=== PATIENT | female | born 1950 | race Caucasian/White ===

== ENCOUNTER 2022-04-06 06:32 | Day surgery (SDC) | payer OTHER, SELFPAY ==
[2022-03-30 15:02] VITALS: BMI 20.9
--- NOTE | 2022-04-05 09:56 | HO.ANESPROP2 ---
Documented by User: Amanda Jimenez NP 04/05/22 09:57 HPI - Anesthesia Eval Consult details Narrative: 71yo F for Colonoscopy PMFSH Active Problems Active Problems: All Active Problems (Updated 03/30/22 @ 15:04 by Marva Guevara RN) Annual physical exam (Acute) Tubular adenoma of colon (Acute) History of basal cell carcinoma (BCC) excision (Acute) Osteoporosis (Acute) MGUS (monoclonal gammopathy of unknown significance) (Acute) Hypertension (Acute) Past Medical History Medical History COVID-19 vaccine series completed Hypertension MGUS (monoclonal gammopathy of unknown significance) Osteoporosis Tubular adenoma of colon Family History Family History (Updated 10/18/20 @ 13:07 by IFEANYI Ching) Father CHF (congestive heart failure) Mother Lung cancer Surgical History Surgical History H/O colonoscopy History of basal cell carcinoma (BCC) excision History of tonsillectomy and adenoidectomy Social History Social History (Updated 11/03/21 @ 09:32 by Jude Nunez MD) Housing: House Alcohol intake: current Alcohol intake frequency: holidays/special occasions only Patient Tobacco Use Status: Never used Tobacco e-Cigarette/Vaping Use: Never Used Second Hand Smoke Exposure: No Use of substances other than those prescribed or required for medical reasons: No Advance Directives: No Advance Directives Information Provided: Yes Advance Directives on File: No Current occupational status: retired Meds Allergies Allergy/AdvReac Type Severity Reaction Status Date / Time MEGAN Inhibitors Allergy Intermediate ELEVATED BP Verified 04/06/22 06:38 [MEGAN INHIBITORS] Home Medications Medication Instructions Recorded Confirmed Last Taken Type alendronate 70 mg tablet 70 mg PO QWEEK 10/21/20 03/30/22 Unknown History ascorbic acid (vitamin C) 500 mg 500 mg PO DAILY 10/21/20 03/30/22 Unknown History capsule cholecalciferol (vitamin D3) 10 10 mcg PO DAILY 10/21/20 03/30/22 Unknown History mcg (400 unit) capsule herbal complex no.174 450 mg mg PO 10/21/20 11/03/21 Unknown History capsule multivitamin 1 tab PO DAILY 10/21/20 03/30/22 Unknown History Exam Exam Date and Time: April 05, 2022 0956 Height,Weight and Vital Signs: Height 5 ft 4 in Weight 55.338 kg Assessment and Plan Assessment Anesthesia Assessment: Chart Reviewed Documented by User: Farzana Lopez MD 04/06/22 07:39 [facility] Past Medical History Medical History COVID-19 vaccine series completed Hypertension MGUS (monoclonal gammopathy of unknown significance) Osteoporosis Tubular adenoma of colon Family History Family History (Updated 10/18/20 @ 13:07 by Ching Ballard [facility]) Father CHF (congestive heart failure) Mother Lung cancer Family history of problems with anesthesia: No Surgical History Surgical History H/O colonoscopy History of basal cell carcinoma (BCC) excision History of tonsillectomy and adenoidectomy History of Problems with Anesthesia: No Social History Social History (Updated 11/03/21 @ 09:32 by Jude Nunez MD) Housing: House Alcohol intake: current Alcohol intake frequency: holidays/special occasions only Patient Tobacco Use Status: Never used Tobacco e-Cigarette/Vaping Use: Never Used Second Hand Smoke Exposure: No Use of substances other than those prescribed or required for medical reasons: No Advance Directives: No Advance Directives Information Provided: Yes Advance Directives on File: No Current occupational status: retired Meds Allergies Allergy/AdvReac Type Severity Reaction Status Date / Time MEGAN Inhibitors Allergy Intermediate ELEVATED BP Verified 04/06/22 06:38 [MEGAN INHIBITORS] Home Medications Medication Instructions Recorded Confirmed Last Taken Type alendronate 70 mg tablet 70 mg PO QWEEK 10/21/20 03/30/22 Unknown History ascorbic acid (vitamin C) 500 mg 500 mg PO DAILY 10/21/20 03/30/22 Unknown History capsule cholecalciferol (vitamin D3) 10 10 mcg PO DAILY 10/21/20 03/30/22 Unknown History mcg (400 unit) capsule herbal complex no.174 450 mg mg PO 10/21/20 11/03/21 Unknown History capsule multivitamin 1 tab PO DAILY 10/21/20 03/30/22 Unknown History Exam Height,Weight and Vital Signs: Height 5 ft 4 in Weight 55.338 kg Vital Signs Temp Pulse Resp BP Pulse Ox 04/06/22 06:45 98.5 F 58 16 155/79 H 99 Airway Mallampati Class: II TM Dist: >3cm Neck ROM: Full Partial: Upper and Lower Heart: RRR Lungs: CTAB Assessment and Plan Assessment Anesthesia Assessment: Anesthesia Plan Discussed Final Anesthetic Review Family History of Problems with Anesthesia: No History of Problems with Anesthesia: No NPO: Yes ASA Class: II Final Preanesthetic Review: No Changes in Pt Med Stat, Meds/Allgs Chart Reviewed, Consent Obtained/Reviewed and Anes Risks/Benef Reviewed Patient Risk: Low Procedure Risk: Low Assessment/Block/Sedation in SS: Assess/Block/Sedation-SS Anesthetic Plan Anesthetic Plan: MAC: Disposition: Standard PACU
[2022-04-06 06:45] VITALS: BP 155/79; PULSE 58; RESP 16; TEMP 36.9; O2SAT 99
[2022-04-06] MEDS: Lactated Ringers 1,000 ML 100 ML IVCONT (06:59)
--- NOTE | 2022-04-06 07:27 | MHC.SHP ---
Pre-Procedural Eval Section A Date of Service: 04/06/22 The History & Physical has been completed within 30 days and I have reviewed it.: No Section B Chief Complaint: screening Details of Present Illness: see H&P no changes Relevant Family History (Specify if Yes): No Relevant Social History: None Present Medications: see Short Stay Collaborative assessment Medical History: No relevant PMH History of Previous Operations: No relevant previous surgery Allergies: Allergies Allergy/AdvReac Type Severity Reaction Status Date / Time MEGAN Inhibitors Allergy Intermediate ELEVATED BP Verified 04/06/22 06:38 [MEGAN INHIBITORS] Review of Systems Sugical H&P ROS: Negative: Constitution, Cardiovascular, Respiratory, Neurological, Psychiatric, Hem-Onc, Allergic/Immunologic, Gastrointestinal, Genitourinary, Musculoskeletal, Integumentary, Endocrine and Eyes/Ears/Nose/Throat Exam Surgical H&P Exam: Normal: HEENT, Normal: Heart, Normal: Lungs, Normal: Extremities, Normal: Abdomen, Normal: Skin and Normal: Neurological Plan Diagnosis/Plan: Unchanged I have reviewed the history and physical and performed a pertinent physical examination on my patient. No changes have occurred unless specified.
[2022-04-06 08:12] VITALS: BP 100/62; PULSE 62; RESP 10; TEMP 36.1; O2SAT 98
--- NOTE | 2022-04-06 08:20 | PM.OP ---
Brief Operative Note Date of Service: 04/06/22 Pre-op diagnosis: screening Post-op diagnosis: same Surgeon: Etienne Bourgeois Anesthesia: MAC Was an Wire Drawing Die Maker used for this Procedure?: No Estimated blood loss (mL): 2 Pathology: other Condition: stable Disposition: PACU
[2022-04-06 08:27] VITALS: BP 124/64; PULSE 57; RESP 16; TEMP 36.2; O2SAT 99
--- NOTE | 2022-04-06 20:20 | OP_ITS ---
SURGEON: Etienne Bourgeois MD INDICATIONS: Colon cancer screening and prior history of tubular adenomas. PREOPERATIVE DIAGNOSIS: POSTOPERATIVE DIAGNOSIS: PROCEDURE PERFORMED: Colonoscopy to the terminal ileum with biopsy. ESTIMATED BLOOD LOSS: COMPLICATIONS: ANESTHESIA: ASSISTANTS: SPECIMENS: MEDICATIONS: Monitored anesthesia care. DESCRIPTION OF PROCEDURE: History and physical were performed. The risks and benefits of the procedure were explained to the patient. Informed consent was obtained. The patient was placed in the left lateral decubitus position. A digital rectal exam was performed and was found to be normal. The Olympus pediatric video colonoscope was introduced into the rectum and advanced to the cecum without difficulty. The cecum was identified by transillumination, palpation, and identification of ileocecal valve. Examination was performed. The scope was removed. She tolerated the procedure well and was taken to recovery area in stable condition. FINDINGS: The limited views of the terminal ileum were within normal limits. The visualized colonic mucosa was normal. The quality of prep was good. A single polyp measuring less than 5 mm at 30 cm from the anal verge, was removed with biopsy forceps. Retroflexed examination showed small internal hemorrhoids. IMPRESSION: Colon polyp. RECOMMENDATION: Follow up the biopsy results. MD KELLEY Wills/ROSANNA / [id number]
== END 2022-04-06 08:59 | disposition home or self-care (01) ==
PROVIDERS: PCP Internal Medicine; Visit Provider Internal Medicine Gastroenterology
PROC: 0DJD8ZZ Inspection of Lower Intestinal Tract, Via Natural or Artificial Opening Endoscopic (ICD-10-PCS; CPT 45378; principal; 2022-04-06 07:30)
DX: Z12.11 Encounter for screening for malignant neoplasm of colon (principal); Z86.010 Personal history of colon polyps; D12.5 Benign neoplasm of sigmoid colon; K64.8 Other hemorrhoids; I10 Essential (primary) hypertension; D47.2 Monoclonal gammopathy; M81.0 Age-related osteoporosis without current pathological fracture; Z79.899 Other long term (current) drug therapy; Z88.8 Allergy status to other drugs, medicaments and biological substances
CPT/HCPCS: 45380; 88305

== ENCOUNTER 2023-07-11 08:49 | Outpatient (REF) | payer OTHER, SELFPAY ==
[2023-07-11 11:18] LABS: MANUAL DIFF FLAG NO
[2023-07-11 11:59] LABS: Basophils Absolute Auto 0.1 X10*3/uL (0.0-0.2); Basophils Percent Auto 1.1 % (0-2); Eosinophils Percent Auto 0.6 % (0-4); Hematocrit 43.7 % (37.0-47.0); Hemoglobin 14.7 g/dl (12.0-16.0); Imm Gran Abs Auto 0.02 X10*3/uL (0.00-0.03); Imm Gran Pct Auto 0.3 % (0.0-0.4); Lymphocytes Absolute Auto 1.9 X10*3/uL (1.2-4.9); Mean Corpuscular HGB Conc 33.6 g/dl (31.0-35.0); Mean Corpuscular Hemoglobin 30.6 pg (27.0-33.0); Mean Corpuscular Volume 90.9 fL (80.0-98.0); Mean Platelet Volume 10.7 fL (9.4-12.3); Monocytes Absolute Auto 0.9 X10*3/uL (0.1-1.2); Monocytes Percent Auto 12.3 % (2-11); Neutrophils Absolute Auto 4.1 x10*3/uL (2.0-8.3); Neutrophils Percent Auto 58.7 % (45-73); Platelet Count 279 X10*3/uL (160-400); Red Blood Count 4.81 X10*6/uL (4.20-5.50); Red Cell Distribution Width 11.9 % (11.0-16.0)
[2023-07-11 12:46] LABS: Alanine Aminotransferase 32 U/L (0-31); Albumin Level 4.3 g/dL (3.5-5.0); Alkaline Phosphatase 70 U/L (39-117); Anion Gap 12 (12-20); Aspartate Amino Transferase 22 U/L (5-31); Bilirubin Total 1.7 mg/dL (0.0-1.0); Blood Urea Nitrogen 19 mg/dL (9-16); Calcium 9.6 mg/dL (8.4-10.2); Carbon Dioxide 28 mmol/L (22-29); Chloride 105 mmol/L (96-108); Cholesterol 168 mg/dL; Estimated Glomerular Filt Rate > 60; Folate 15.7 ng/mL (> or = 4.0); Glucose Random 88 mg/dL (60-115); HDL Cholesterol 63 mg/dL; LDL Cholesterol Calculated 84 mg/dl; Potassium 3.8 mmol/L (3.3-5.1); Sodium 141 mmol/L (135-145); Total Protein 6.8 g/dL (6.5-8.0); Triglycerides 105 mg/dL; Vitamin B12 493 pg/mL (200-900)
[2023-07-11 12:48] LABS: Free T4 (Free Thyroxine) 0.85 ng/dL (0.71-1.85); Thyroid Stimulating Hormone 0.69 uIU/mL (0.32-4.0); Vitamin D 25-OH Total 94.1 ng/mL (>30)
[2023-07-12 19:38] LABS: Calcium (PTHI) 9.4 mg/dL (8.6-10.4); PTHI 36 pg/mL (16-77)
== END 2023-07-11 08:50 | disposition home or self-care (01) ==
LOC: HO.WFDLDS 08:49
PROVIDERS: Visit Provider Internal Medicine
DX: I10 Essential (primary) hypertension (principal); M81.0 Age-related osteoporosis without current pathological fracture; E78.00 Pure hypercholesterolemia, unspecified
CPT/HCPCS: 36415; 80053; 80061; 82306; 82607; 82746; 83970; 84439; 84443; 85025

== ENCOUNTER 2023-10-21 16:32 | Outpatient (AMB) | payer OTHER, SELFPAY ==
--- NOTE | 2023-10-21 16:37 | MHC.PC.OV ---
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 Last seen for physical exam April 2023. Patient is up-to-date with colonoscopy mammogram and bone density patient sees Dermatology October 2023 received Shingrix. 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 Patient has seen also the Orthopedics for left intra-articular distal radial fracture had closed reduction maneuver April 2023. spoke to Dr. Velazquez. [facility] Medical History (Updated 10/21/23 @ 17:26 by Jude Nunez MD) COVID-19 vaccine series completed Tubular adenoma of colon Osteoporosis MGUS (monoclonal gammopathy of unknown significance) Hypertension Surgical History H/O colonoscopy History of basal cell carcinoma (BCC) excision History of tonsillectomy and adenoidectomy Family History (Updated 04/15/23 @ 17:27 by Veronica Noriega) Father CHF (congestive heart failure) Mother Lung cancer Social History (Updated 04/15/23 @ 17:48 by Jude Nunez MD) Housing: House Alcohol intake: current Alcohol intake frequency: holidays/special occasions only Patient Tobacco Use Status: Never used Tobacco e-Cigarette/Vaping Use: Never Used Second Hand Smoke Exposure: No Current occupational status: retired Cognitive needs: No Hearing needs: No Vision needs: No Questionnaire Thrive Questionnaire Date Thrive assessed: 04/15/23 AUDIT C Alcohol Use Questionnaire (AUDIT-C) 1. How often do you have a drink containing alcohol?: Never 2. How many drinks containing alcohol do you have on a typical day when you are drinking?: 1 or 2 3. How often do you have six or more drinks on one occasion?: Never Total Score: 0 WANDER-7 AMB Questionnaire WANDER-7 Date WANDER - 7 assessed: 04/15/23 Source: Developed by Drs. Segundo Yuen, Abbey Marinelli, Quan Garcia and colleagues, with an educational imani from [employer]. Physical exam (Primary Care) Vital Signs: Last Vital Signs Pulse 58 10/21/23 16:38 BP 160/86 H 10/21/23 16:38 Pulse Ox 100 10/21/23 16:38 Oxygen Delivery Method Room Air 10/21/23 16:38 BMI result Body Mass Index 20.3 Tobacco/Smoking Status: Tobacco use Status Tobacco use date assessed 10/21/23 10/21/23 16:38 Patient Tobacco Use Status Never used Tobacco 10/21/23 16:38 e-Cigarette/Vaping Use Never Used 10/21/23 16:38 Thrive Assessment: Date of Thrive Assessment Date Thrive assessed 04/15/23 10/21/23 16:38 Const General: alert; No acute distress Eyes Conjunctivae: conjunctivae normal Resp Auscultation: clear to auscultation bilaterally Cardio Rate: regular rate Rhythm: regular rhythm GI Inspection: Yes normal to inspection Extrem General: Yes normal to inspection and No edema Office Procedures Flu Questionnaire Does the patient have a severe egg allergy?: No Does the patient have severe life threatening allergies?: No Does the patient have a fever or illness today?: No Has the patient ever had Guillain-[place] Syndrome?: No Has the patient ever had any past reaction to a flu shot?: No Immunizations flu vacc [id number] 6mos up(PF) 60 mcg(15 mcgx4)/0.5 mL IM syringe Performing Provider: Jude Nunez MD Performing Location: [facility] [employer] Administered by: IFEANYI Vega on 10/21/23 16:51 Dose Route Admin Location Dispensed Lot Number Expiration Date NDC Material Planning Analyst 0.5 mL IM Left Deltoid 0.5 mL [id number] 05/31/24 [id number] [employer] VIS Given Date VIS Provided VIS Publication Date 10/21/23 Single Vaccine 21 Eligibility Eligibility Date Funding Source Not VF Eligible 10/21/23 Private Assessment and Plan Assessment & Plan (1) Left wrist fracture: Comment: 04/23/2023 with closed reduction(distal radial fracture) Code(s): S62.102A - Fracture of unspecified carpal bone, left wrist, initial encounter for closed fracture Plan: Resolved (2) Osteoporosis: Code(s): M81.0 - Age-related osteoporosis without current pathological fracture Qualifiers: Osteoporosis type: age-related Presence of current pathological fracture: without current pathological fracture Qualified Code(s): M81.0 - Age-related osteoporosis without current pathological fracture Plan: Discussed about calcium and vitamin-D (3) MGUS (monoclonal gammopathy of unknown significance): Comment: Doctor Rodríguez November 2016, May 2017, June 2020 Code(s): D47.2 - Monoclonal gammopathy Plan: Patient follows up with hematology oncology and since asymptomatic continuing to monitor (4) Hypertension: Code(s): I10 - Essential (primary) hypertension Qualifiers: Hypertension type: essential hypertension Qualified Code(s): I10 - Essential (primary) hypertension Plan: Continue with blood pressure medication. Decrease salt intake and exercise patient on hydrochlorothiazide 25 mg once a day Orders: Orders Influenza [id number] Immunization Today Z23 - Encounter for immunization Medications: New amlodipine 5 mg PO DAILY 30 tabs 4RF I10 - Essential (primary) hypertension Coding Level of Care Code Est Pt Level 4 (15182) Diagnoses Left wrist fracture S62.102A Age-related osteoporosis without current pathological fracture M81.0 Osteoporosis type: age-related Presence of current pathological fracture: without current pathological fracture MGUS (monoclonal gammopathy of unknown significance) D47.2 Essential hypertension I10 Hypertension type: essential hypertension
[2023-10-21 16:38] VITALS: BP 160/86; PULSE 58; O2SAT 100; BMI 20.3
== END 2023-10-21 17:39 | disposition home or self-care (01) ==
PROVIDERS: Visit Provider Internal Medicine
DX: S62.102A Fracture of unspecified carpal bone, left wrist, initial encounter for closed fracture (principal); M81.0 Age-related osteoporosis without current pathological fracture; D47.2 Monoclonal gammopathy; I10 Essential (primary) hypertension; Z23 Encounter for immunization
CPT/HCPCS: 90471; 90686; 99214

== ENCOUNTER 2024-04-20 17:07 | Outpatient (AMB) | payer OTHER, SELFPAY ==
--- NOTE | 2024-04-20 17:14 | MHC.PC.OV ---
Vital Signs 04/20/24 17:19 Height 5 ft 4 in Weight 53.581 kg BMI 20.3 BP 168/88 H Blood Pressure Location Lt brachial Position Sitting Pulse 60 Pulse Source Pulse Oximeter Pulse Oximetry (%) 98 Oxygen Delivery Method Room Air Intake Visit Reasons: PE Call Center Specialist Required: No Accompanied by: Self / Same As Patient Allergies MEGAN Inhibitors [MEGAN INHIBITORS] Allergy (Intermediate, Verified 04/20/24 17:29) ELEVATED BP Medication List - Last Reconciled 04/20/24 by Jude Nunez MD amlodipine 5 mg PO DAILY ascorbic acid (vitamin C) 500 mg PO DAILY cholecalciferol (vitamin D3) 10 mcg PO DAILY herbal complex no.174 mg PO hydrochlorothiazide 25 mg PO DAILY multivitamin 1 tab PO DAILY Tobacco use date assessed: 04/20/24 Fall risk assessment: No Falls in past year Last assessed Fall Risk: 04/20/24 Dental Screening Dental Screen Date: 04/20/24 Did you have a dental visit in the last 12 months?: Yes Did you have a dental problem in the last 6 months where you did not have access to dental care?: No Was dental information given to patient?: Patient has dentist HPI PE HPI Details 73-year-old female with a history of osteoporosis MGUS and hypertension last seen in October 2023. Patient is here for physical exam. Colonoscopy is up-to-date April 2022 tubular adenoma mammogram April 2023 due bone density November 2022 up-to-date. BP good at home [facility], [facility] Medical History (Updated 04/20/24 @ 18:07 by Jude Nunez MD) COVID-19 vaccine series completed Tubular adenoma of colon Osteoporosis MGUS (monoclonal gammopathy of unknown significance) Hypertension Surgical History H/O colonoscopy History of basal cell carcinoma (BCC) excision History of tonsillectomy and adenoidectomy Family History Father CHF (congestive heart failure) Mother Lung cancer Social History (Updated 04/20/24 @ 18:07 by Jude Nunez MD) Housing: House Alcohol intake: current Alcohol intake frequency: holidays/special occasions only Comment: 1 day glass of wine Patient Tobacco Use Status: Never used Tobacco e-Cigarette/Vaping Use: Never Used Second Hand Smoke Exposure: No Current occupational status: retired Cognitive needs: No Hearing needs: No Vision needs: No Questionnaire PHQ-9 Over the last 2 weeks, how often have you been bothered by any of the following problems? 1. Little interest or pleasure in doing things: not at all 2. Feeling down, depressed, or hopeless: not at all 3. Trouble falling or staying asleep, or sleeping too much: not at all 4. Feeling tired or having little energy: not at all 5. Poor appetite or overeating: not at all 6. Feeling bad about yourself - or that you are a failure or have let yourself or your family down: not at all 7. Trouble concentrating on things, such as reading the newspaper or watching television: not at all 8. Moving or speaking so slowly that other people could have noticed. Or the opposite - being so fidgety or restless that you have been moving around a lot more than usual: not at all 9. Thoughts that you would be better off or of hurting yourself in some way: not at all Total score: 0 Depression Screening Interpretation: Negative Depression Screening Done: Yes Source: Developed by Drs. Segundo Yuen, Abbey Marinelli, Quan Garcia and colleagues, with an educational imani from [employer]. Thrive Questionnaire Date Thrive assessed: 04/20/24 I am a: Patient What is your living situation today?: I have a steady place to live Within the past 12 months, did the food you bought not last and you didn't have the money to get more?: Never true Within the past 12 months, did you worry whether your food would run out before you got money to buy more?: Never true Do you have trouble paying for medicines?: No Do you have trouble getting transportation to medical appointments?: No Do you have trouble paying your heating and electricity bill?: No Do you have trouble taking care of your child, family member or friend?: No Do you have trouble with day-to-day activities such as bathing, preparing meals, shopping, managing finances, etc.?: No Are you currently unemployed and looking for a job?: No Are you interested in more education?: No Please select the resources that you would like help with: None Currently or been in a relationship where the following occur: no concerns reported THRIVE Score: 0 AUDIT C Alcohol Use Questionnaire (AUDIT-C) 1. How often do you have a drink containing alcohol?: Never 2. How many drinks containing alcohol do you have on a typical day when you are drinking?: 1 or 2 3. How often do you have six or more drinks on one occasion?: Never Total Score: 0 WANDER-7 AMB Questionnaire WANDER-7 Date WANDER - 7 assessed: 04/20/24 Feeling nervous, anxious, or on edge: 0 = Not at all Not being able to stop or control worryin = Not at all Worrying too much about different things: 0 = Not at all Trouble relaxin = Not at all Being so restless that it is hard to sit still: 0 = Not at all Becoming easily annoyed or irritable: 0 = Not at all Feeling afraid as if something awful might happen: 0 = Not at all Total WANDER-7 score (0-4 normal; 5-9 mild; 10-14 moderate; 15-21 severe): 0 Source: Developed by Drs. Segundo Yuen, Abbey Marinelli, Quan Garcia and colleagues, with an educational imani from [employer]. WANDER-7 Assessment Billing WANDER-7 Assessment Tool: WANDER-7 Assessment 92277 Review of Systems Const Denies poor appetite and Denies weakness Eyes Denies no additional complaints ENT Reports Normal hearing present, Denies dizziness, Denies nasal congestion, Denies tinnitus and Denies sore throat Card Denies chest pain, Denies syncope, Denies rapid heart rate and Denies dyspnea Resp Denies cough and Denies dyspnea GI Denies change in stool character, Reports constipation, Denies diarrhea, Denies nausea and Denies vomiting Denies urinary frequency, Denies difficulty voiding and Denies dysuria Neuro Reports Normal hearing present, Denies confusion, Denies dizziness, Denies syncope and Denies weakness Psych Denies confusion Physical exam (Primary Care) Vital Signs: Last Vital Signs Pulse 60 04/20/24 17:19 BP 168/88 H 04/20/24 17:19 Pulse Ox 98 04/20/24 17:19 Oxygen Delivery Method Room Air 04/20/24 17:19 BMI result Body Mass Index 20.3 Tobacco/Smoking Status: Tobacco use Status Tobacco use date assessed 04/20/24 04/20/24 17:29 Patient Tobacco Use Status Never used Tobacco 04/20/24 18:07 e-Cigarette/Vaping Use Never Used 04/20/24 18:07 PHQ-9: PHQ-9 Score PHQ-9: Total score 0 04/20/24 18:03 Depression Screening Interpretation: Negative Thrive Assessment: Date of Thrive Assessment Date Thrive assessed 04/20/24 04/20/24 17:21 Currently or been in a relationship where the following occur: no concerns reported Const General: No confusion Orientation/consciousness: No confusion HENMT Head: Yes normocephalic Ears: external ears normal and TM's normal bilaterally Face and sinus: Yes normal facial exam Mouth: moist mucous membranes Throat: Yes tonsils normal Eyes Conjunctivae: conjunctivae normal Pupils: Equal, round and reactive pupils present and Pupil accommodation reflex normal Direct Ophthalmoscopy: normal light reflex Neck Neck: No lymphadenopathy Thyroid: Thyroid normal Chest Chest palpation & inspection: normal inspection of the chest Resp Effort & Inspection: normal respiratory effort and no audible wheezes Auscultation: clear to auscultation bilaterally, no crackles, no wheezes and lung sounds not diminished Cardio Rate: regular rate Rhythm: regular rhythm Peripheral pulses: radial pulses present and dorsalis pedis present GI Palpation (GI): no masses Auscultation: normal bowel sounds and normoactive bowel sounds Rectal Exam - Female: deferred Skin General skin exam: no rashes or lesions noted Rashes: no rashes Neuro General: No confusion Cranial nerves: Yes Equal, round and reactive pupils present and Yes Normal hearing present Cognition (Neuro): normal cognition Gait exam (Neuro): Normal gait present Motor exam (neuro): 5/5 motor strength present throughout Deep tendon reflexes (DTR's): Right brachioradialis reflex intensity grade: 2+, Left brachioradialis reflex intensity grade: 2+, Right patellar reflex intensity grade: 2+ and Left patellar reflex intensity grade: 2+ Extrem General: No edema Immunizations tetanus-diphtheria toxoids-Td 2 Lf unit-2 Lf unit/0.5 mL IM suspension Performing Provider: Jude Nunez MD Performing Location: [facility] Administered by: IFEANYI Lazar on 04/20/24 18:29 Dose Route Admin Location Dispensed Lot Number Expiration Date NDC Web Site [employer]er 0.5 mL IM Left Deltoid 0.5 mL [id number] 01/11/25 [address]-9 [employer] VIS Given Date VIS Provided VIS Publication Date 04/20/24 Single Vaccine 21 Eligibility Eligibility Date Funding Source Not VFC Eligible 04/20/24 State funds Assessment and Plan Assessment & Plan (1) Annual physical exam: Code(s): Z00.00 - Encounter for general adult medical examination without abnormal findings (2) Hypertension: Code(s): I10 - Essential (primary) hypertension Qualifiers: Hypertension type: essential hypertension Qualified Code(s): I10 - Essential (primary) hypertension Plan: Continue with blood pressure medication. Decrease salt intake and exercise presently on amlodipine 5 mg once a day and hydrochlorothiazide 25 mg once a day (3) MGUS (monoclonal gammopathy of unknown significance): Comment: Doctor Rodríguez November 2016, May 2017, June 2020 Code(s): D47.2 - Monoclonal gammopathy Plan: Patient follows up with Hematology-Oncology (4) Osteoporosis: Comment: November 2022 Code(s): M81.0 - Age-related osteoporosis without current pathological fracture Qualifiers: Osteoporosis type: age-related Presence of current pathological fracture: without current pathological fracture Qualified Code(s): M81.0 - Age-related osteoporosis without current pathological fracture Plan: Up-to-date with bone density and discussed about calcium and vitamin-D (5) Breast cancer screening by mammogram: Comment: [place] Code(s): Z12.31 - Encounter for screening mammogram for malignant neoplasm of breast Plan: Reminded about mammogram (6) 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 Mckeon Code(s): C79.2 - Secondary malignant neoplasm of skin Orders: Orders Complete Blood Count Auto Diff Today I10 - Essential (primary) hypertension Thyroid Stimulating Hormone Today I10 - Essential (primary) hypertension Comprehensive Met. Panel Today I10 - Essential (primary) hypertension Free T4 (Free Thyroxine) Today I10 - Essential (primary) hypertension Vitamin B12 and Folate Today I10 - Essential (primary) hypertension Vitamin D 25-OH Total Today I10 - Essential (primary) hypertension Lipid Panel Today E78.00 - Pure hypercholesterolemia, unspecified, I10 - Essential (primary) hypertension Td State Immunization Today Z23 - Encounter for immunization Medications: New tetanus-diphtheria toxoids-Td 0.5 mL IM ONCE 0.5 mL 0RF Z23 - Encounter for immunization Coding Level of Care Code Est Pt Prev Care >65y(38983) Diagnoses Annual physical exam Z00.00 Essential hypertension I10 Hypertension type: essential hypertension MGUS (monoclonal gammopathy of unknown significance) D47.2 Age-related osteoporosis without current pathological fracture M81.0 Osteoporosis type: age-related Presence of current pathological fracture: without current pathological fracture Breast cancer screening by mammogram Z12.31 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
[2024-04-20 17:19] VITALS: BP 168/88; PULSE 60; O2SAT 98; BMI 20.3
== END 2024-04-20 18:23 | disposition home or self-care (01) ==
PROVIDERS: Visit Provider Internal Medicine
DX: Z00.00 Encounter for general adult medical examination without abnormal findings (principal); C79.2 Secondary malignant neoplasm of skin; I10 Essential (primary) hypertension; Z23 Encounter for immunization; D47.2 Monoclonal gammopathy; M81.0 Age-related osteoporosis without current pathological fracture; Z12.31 Encounter for screening mammogram for malignant neoplasm of breast
CPT/HCPCS: 90471; 90714; 99397

== ENCOUNTER 2024-07-06 09:00 | Outpatient (AMB) | payer OTHER, SELFPAY ==
--- NOTE | 2024-07-06 09:36 | MHC.OFFWIV ---
Intake Vital Signs 07/06/24 09:38 Height 5 ft 4 in Weight 118 lb 4 oz BMI 20.3 BP 122/72 Blood Pressure Location Rt brachial Position Sitting Respiration 16 Pulse 68 Pulse Source Pulse Oximeter Temp 98.8 F Temp Source Oral Pulse Oximetry (%) 96 Oxygen Delivery Method Room Air Intake Visit Reasons: EST/ Cough past five days Intake Note: Cough past 5 days. Patient Tobacco Use Status: Never used Tobacco Clerical Coordinator Required: No Allergies MEGAN Inhibitors [MEGAN INHIBITORS] Allergy (Intermediate, Verified 07/06/24 09:46) ELEVATED BP Medication List - Last Reconciled 07/06/24 by Esmer Rogers, VESSEL MASTER- amlodipine 5 mg PO DAILY ascorbic acid (vitamin C) 500 mg PO DAILY cholecalciferol (vitamin D3) 10 mcg PO DAILY herbal complex no.174 mg PO hydrochlorothiazide 25 mg PO DAILY multivitamin 1 tab PO DAILY Do you need a note to return to daycare/school/sports/work: No HPI HPI Comments History of Present Illness Details Pleasant 73-year-old female here today with chief complaints of a cough. She reports that she developed a cough 5 days ago. Otherwise she does not feel ill. She was exposed to her grandchildren who had similar symptoms. She did test for COVID at home, this was negative. She has been using NyQuil at night to help her cough. She is mainly concerned as she is leaving for vacation to [facility] next week and does not want to be ill on her trip. She denies fever, chills, chest pain, orthopnea, sore throat, sinus pain, runny nose. Awake alert NAD, appears well Sclera and conjunctiva clear bilat MMM, pharynx WNL RRR, 2/6 systolic murmur, Right sternal border (reports known) LS CTAB, no coughing Plan: At this time I do not think that she needs an antibiotic. Offered and declined a viral swab today. We will prescribe her Tessalon to use as needed for cough. Advised to use this instead of NyQuil, not in addition to. As she is traveling to [facility], I will give her a prescription for an antibiotic to use only as needed. Educated on the reasons for use. Otherwise reassured. This note is constructed using voice recognition software. While every effort has been made to ensure accuracy in risk management professional, still errors may have been included Sometimes, these errors may affect the content or meaning of the given sentence . [facility] Medical History (Updated 07/06/24 @ 10:08 by Esmer Rogers [facility]) COVID-19 vaccine series completed Tubular adenoma of colon Osteoporosis MGUS (monoclonal gammopathy of unknown significance) Hypertension Surgical History H/O colonoscopy History of basal cell carcinoma (BCC) excision History of tonsillectomy and adenoidectomy Family History Father CHF (congestive heart failure) Mother Lung cancer Social History (Updated 04/20/24 @ 18:07 by Jude Nunez MD) Housing: House Alcohol intake: current Alcohol intake frequency: holidays/special occasions only Comment: 1 day glass of wine Patient Tobacco Use Status: Never used Tobacco e-Cigarette/Vaping Use: Never Used Second Hand Smoke Exposure: No Current occupational status: retired Cognitive needs: No Hearing needs: No Vision needs: No Physical Exam Vital Signs: Last Vital Signs Temp 98.8 F 07/06/24 09:38 Pulse 68 07/06/24 09:38 Resp 16 07/06/24 09:38 BP 122/72 07/06/24 09:38 Pulse Ox 96 07/06/24 09:38 Oxygen Delivery Method Room Air 07/06/24 09:38 BMI result Body Mass Index 20.3 Assessment & Plan Assessment & Plan (1) Cough: Code(s): R05.9 - Cough, unspecified Qualifiers: Cough type: acute Qualified Code(s): R05.1 - Acute cough Plan: . Medications: New benzonatate 100 mg PO TID 10 days PRN 30 caps 1RF cough amoxicillin-pot clavulanate 500-125 mg 1 tab PO BID 7 days 14 tabs 0RF Coding Level of Care Code Est Pt Level 3 (58130) Diagnoses Acute cough R05.1 Cough type: acute
[2024-07-06 09:38] VITALS: BP 122/72; PULSE 68; RESP 16; TEMP 37.1; O2SAT 96; BMI 20.3
== END 2024-07-06 09:54 | disposition home or self-care (01) ==
PROVIDERS: PCP Internal Medicine; Visit Provider Nurse Practitioner Family
DX: R05.1 Acute cough (principal)
CPT/HCPCS: 99213

== ENCOUNTER 2024-08-07 08:51 | Outpatient (REF) | payer OTHER, SELFPAY ==
[2024-08-07 11:14] LABS: MANUAL DIFF FLAG NO
[2024-08-07 11:32] LABS: Basophils Absolute Auto 0.1 X10*3/uL (0.0-0.2); Basophils Percent Auto 0.6 % (0-2); Eosinophils Absolute Auto 0.1 X10*3/uL (0.0-0.4); Eosinophils Percent Auto 0.6 % (0-4); Hematocrit 43.3 % (37.0-47.0); Hemoglobin 14.4 g/dl (12.0-16.0); Imm Gran Abs Auto 0.02 X10*3/uL (0.00-0.03); Imm Gran Pct Auto 0.3 % (0.0-0.4); Lymphocytes Percent Auto 25.8 % (20-40); Mean Corpuscular HGB Conc 33.3 g/dl (31.0-35.0); Mean Corpuscular Hemoglobin 30.3 pg (27.0-33.0); Mean Platelet Volume 10.2 fL (9.4-12.3); Monocytes Absolute Auto 0.9 X10*3/uL (0.1-1.2); Monocytes Percent Auto 11.7 % (2-11); Neutrophils Absolute Auto 4.7 x10*3/uL (2.0-8.3); Platelet Count 262 X10*3/uL (160-400); Red Blood Count 4.76 X10*6/uL (4.20-5.50); Red Cell Distribution Width 12.2 % (11.0-16.0); White Blood Count 7.8 X10*3/uL (4.8-10.8)
[2024-08-07 12:00] LABS: Alanine Aminotransferase 19 U/L (0-31); Alkaline Phosphatase 66 U/L (39-117); Anion Gap 11 (12-20); Aspartate Amino Transferase 14 U/L (5-31); Bilirubin Total 1.6 mg/dL (0.0-1.0); Blood Urea Nitrogen 17 mg/dL (9-16); Carbon Dioxide 27 mmol/L (22-29); Chloride 107 mmol/L (96-108); Cholesterol 155 mg/dL (<200); Estimated Glomerular Filt Rate > 60; Glucose Random 86 mg/dL (60-115); HDL Cholesterol 56 mg/dL (>40); LDL Cholesterol Calculated 75 mg/dL (<100); Potassium 3.5 mmol/L (3.3-5.1); Sodium 141 mmol/L (135-145); Total Protein 6.6 g/dL (6.5-8.0); Triglycerides 123 mg/dL (<150)
[2024-08-07 12:17] LABS: Free T4 (Free Thyroxine) 0.99 ng/dL (0.71-1.85); Thyroid Stimulating Hormone 0.63 uIU/mL (0.32-4.0); Vitamin D 25-OH Total 75.2 ng/mL (>30)
[2024-08-07 12:27] LABS: Folate 13.8 ng/mL (> or = 4.0); Vitamin B12 416 pg/mL (200-900)
== END 2024-08-07 08:52 | disposition home or self-care (01) ==
LOC: HO.WFDLDS 08:51
PROVIDERS: Visit Provider Internal Medicine
DX: I10 Essential (primary) hypertension (principal); E78.00 Pure hypercholesterolemia, unspecified
CPT/HCPCS: 36415; 80053; 80061; 82306; 82607; 82746; 84439; 84443; 85025

== ENCOUNTER 2024-12-28 10:20 | Outpatient (AMB) | payer OTHER, SELFPAY ==
[2024-12-28 10:38] VITALS: BP 150/74; PULSE 64; TEMP 36.3; O2SAT 99; BMI 19.9
--- NOTE | 2024-12-28 10:38 | A.OFFPC_ITS ---
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: No Accompanied by: Self / Same As Patient Allergies MEGAN Inhibitors [MEGAN INHIBITORS] Allergy (Intermediate, Verified 12/28/24 10:44) ELEVATED BP Medication List - Last Reconciled 12/28/24 by Delilah Worley PA-C amlodipine 5 mg PO DAILY ascorbic acid (vitamin C) 500 mg PO DAILY cholecalciferol (vitamin D3) 10 mcg PO DAILY herbal complex no.174 mg PO hydrochlorothiazide 25 mg PO DAILY multivitamin 1 tab PO DAILY Tobacco use date assessed: 12/28/24 Fall risk assessment: 1 Fall in past year Last assessed Fall Risk: 12/28/24 Dental Screening Dental Screen Date: 12/28/24 Did you have a dental visit in the last 12 months?: Yes Did you have a dental problem in the last 6 months where you did not have access to dental care?: No Was dental information given to patient?: Patient has dentist [facility] 12/24 HPI Details 74-year-old female with past medical his tory of osteoporosis, MGUS and hypertension last seen 04/2024 coming in for hospital discharge follow up.?In review of the notes, patient was seen in [facility] 12/24/2024 after a fall pelvic x-ray showed left femoral neck fracture and paste in was transferred to [facility] where she underwent left hip hemiarthroplasty on 12/15/[address] Moody.?Dr. Moody recommending aspirin 81 mg twice daily postoperatively and patient was discharged to rehab facility 12/17/2024. Patient tells us today she is seeing Dr. Moody tomorrow for her staple removal and postoperative exam. She has been ambulating well with a walker and has good mobility she was discharged from rehab and is working with at home PT/OT. She states she is moving around well at home with a walker and also uses a raised toilet seat. She has been changing her bandages at home without issue and denies any leaking or drainage from the wound. She uses Tylenol as needed for her pain and has not had to use oxycodone. 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 [facility] Medical History (Updated 12/28/24 @ 12:45 by Delilah Worley PA-C) COVID-19 vaccine series completed Tubular adenoma of colon Osteoporosis MGUS (monoclonal gammopathy of unknown significance) Hypertension Surgical History (Updated 12/28/24 @ 12:45 by Delilah Worley PA-C) History of right hip hemiarthroplasty H/O colonoscopy History of basal cell carcinoma (BCC) excision History of tonsillectomy and adenoidectomy Family History Father CHF (congestive heart failure) Mother Lung cancer Social History (Updated 04/20/24 @ 18:07 by Jude Nunez MD) Housing: House Alcohol intake: current Alcohol intake frequency: holidays/special occasions only Comment: 1 day glass of wine Patient Tobacco Use Status: Never used Tobacco e-Cigarette/Vaping Use: Never Used Second Hand Smoke Exposure: No service: No Current occupational status: retired Cognitive needs: No Hearing needs: No Vision needs: No Questionnaire PHQ-9 Over the last 2 weeks, how often have you been bothered by any of the following problems? 1. Little interest or pleasure in doing things: not at all 2. Feeling down, depressed, or hopeless: not at all 3. Trouble falling or staying asleep, or sleeping too much: not at all 4. Feeling tired or having little energy: not at all 5. Poor appetite or overeating: not at all 6. Feeling bad about yourself - or that you are a failure or have let yourself or your family down: not at all 7. Trouble concentrating on things, such as reading the newspaper or watching television: not at all 8. Moving or speaking so slowly that other people could have noticed. Or the opp osite - being so fidgety or restless that you have been moving around a lot more than usual: not at all 9. Thoughts that you would be better off or of hurting yourself in some way: not at all Total score: 0 Depression Screening Interpretation: Negative Depression Screening Done: Yes 90702 - PHQ-9 Billing: Yes Source: Developed by Drs. Segundo Yuen, Abbey Marinelli, Quan Garcia and colleagues, with an educational imani from [employer]. Thrive Questionnaire Date Thrive assessed: 12/28/24 I am a: Patient What is your living situation today?: I have a steady place to live Within the past 12 months, did the food you bought not last and you didn't have the money to get more?: Never true Within the past 12 months, did you worry whether your food would run out before you got money to buy more?: Never true Do you have trouble paying for medicines?: No Do you have trouble getting transportation to medical appointments?: No Do you have trouble paying your heating and electricity bill?: No Do you have trouble taking care of your child, family member or friend?: No Do you have trouble with day-to-day activities such as bathing, preparing meals, shopping, managing finances, etc.?: No Are you currently unemployed and looking for a job?: No Are you interested in more education?: No Please select the resources that you would like help with: None Currently or been in a relationship where the following occur: No concerns reported THRIVE Score: 0 AUDIT C Alcohol Use Questionnaire (AUDIT-C) 1. How often do you have a drink containing alcohol?: Monthly or less 2. How many drinks containing alcohol do you have on a typical day when you are drinking?: 1 or 2 3. How often do you have six or more drinks on one occasion?: Never Total Score: 1 WANDER-7 AMB Questionnaire WANDER-7 Date WANDER - 7 assessed: 12/28/24 Feeling nervous, anxious, or on edge: 0 = Not at all Not being able to stop or control worryin = Not at all Worrying too much about different things: 0 = Not at all Trouble relaxin = Not at all Being so restless that it is hard to sit still: 0 = Not at all Becoming easily annoyed or irritable: 0 = Not at all Feeling afraid as if something awful might happen: 0 = Not at all Total WANDER-7 score (0-4 normal; 5-9 mild; 10-14 moderate; 15-21 severe): 0 Source: Developed by Drs. Segundo Yuen, Abbey Marinelli, Quan Garcia and colleagues, with an educational imani from [employer]. WANDER-7 Assessment Billing WANDER-7 Assessment Tool: WANDER-7 Assessment 95646 Review of Systems Const Denies body aches, Denies chills, Denies fever(s), Denies headache(s) and Denies poor appetite Eyes Reports no additional complaints ENT Denies dizziness and Denies headache(s) Card Denies chest pain, Denies syncope, Denies edema, Denies irregular heart rhythm, Denies lightheadedness and Denies dyspnea Resp Denies cough and Denies dyspnea GI Denies constipation, Denies diarrhea, Denies nausea and Denies vomiting Reports no additional complaints Musc Details: Left hip soreness Reports abnormal gait Skin/Breast Reports system reviewed and no additional complaints, except as documented Neuro Reports abnormal gait, Denies dizziness, Denies syncope and Denies headache(s) Psych Reports no additional complaints Physical exam (Primary Care) Vital Signs: Last Vital Signs Temp 97.3 F 12/28/24 10:38 Pulse 64 12/28/24 10:38 BP 132/70 12/28/24 11:16 Pulse Ox 99 12/28/24 10:38 Oxygen Delivery Method Room Air 12/28/24 10:38 BMI result Body Mass Index 19.9 Tobacco/Smoking Status: Tobacco use Status Tobacco use date assessed 12/28/24 12/28/24 10:45 Patient Tobacco Use Status Never used Tobacco 12/28/24 10:43 e-Cigarette/Vaping Use Never Used 12/28/24 10:43 PHQ-9: PHQ-9 Score PHQ-9: Total score 0 12/28/24 10:48 Depression Screening Interpretation: Negative Thrive Assessment: Date of Thrive Assessment Date Thrive assessed 12/28/24 12/28/24 10:43 Currently or been in a relationship where the following occur: No concerns reported Const General: cooperative, healthy appearing, comfortable and no acute distress Orientation/consciousness: patient oriented x3 HENMT Head: Yes normocephalic Ears: hearing grossly normal bilaterally General nose exam: Normal external nose present Eyes General: appearance normal, both eyes and all related structures Conjunctivae: conjunctivae normal Neck Neck: Yes full ROM and Yes no lymphadenopathy Resp Effort & Inspection: normal respiratory effort Auscultation: clear to auscultation bilaterally, no crackles, no rales, no rhonchi and no wheezes Cardio Rate: regular rate Rhythm: regular rhythm Skin General skin exam: no rashes or lesions noted Neuro General: patient oriented x3 Gait exam (Neuro): Assisted gait required Gait assisted method: walker Extrem General: Yes normal to inspection, Yes full ROM and No edema Psych Affect: normal affect Attitude: cooperative Insight: Good insight present (Psych) Judgement: Good judgement present (Psych) Coding Level of Care Code Est Pt Level 3 (08419) Diagnoses Closed left hip fracture S72.002A Essential hypertension I10 Hypertension type: essential hypertension Age-related osteoporosis without current pathological fracture M81.0 Osteoporosis type: age-related Presence of current pathological fracture: without current pathological fracture Additional Codes WANDER-7 Assessment Billing - WANDER-7 Assessment Tool: WANDER-7 Assessment 39337 ([id number]) PHQ-9 - 08154 - PHQ-9 Billing: Yes ([id number]) Assessment & Plan Assessment & Plan (1) Closed left hip fracture: Code(s): S72.002A - Fracture of unspecified part of neck of left femur, initial encounter for closed fracture Category: Medical Plan: Patient recently suffered a fall and when presenting to [facility] x-ray showed left femoral neck fracture and paste in was transferred to [facility] where she underwent left hip hemiarthroplasty with Dr. Moody through [facility]. She is postoperative appointment tomorrow where she will have naveed removed as well. Continue to follow with Orthopedics and continue with PT/OT Currently ambulating with a walker and notes good mobility. (2) Hypertension: Code(s): I10 - Essential (primary) hypertension Category: Medical Qualifiers: Hypertension type: essential hypertension Qualified Code(s): I10 - Essential (primary) hypertension Plan: Continue on current blood pressure medication. Avoid salt intake and encourage healthy diet and regular exercise. Initially elevated 150/74 however 132/70 when retaken. Patient states blood pressure at home has been good when PT/OT comes. (3) Osteoporosis: Comment: November 2022 Code(s): M81.0 - Age-related osteoporosis without current pathological fracture Category: Medical Qualifiers: Osteoporosis type: age-related Presence of current pathological fracture: without current pathological fracture Qualified Code(s): M81.0 - Age- related osteoporosis without current pathological fracture Plan: Patient have bone density scan this Saturday and continue to follow with [facility] endocrinology Plan This note was constructed using voice recognition software. While every effort has been made to ensure accuracy and special effects makeup artist, still areas may have been included sometimes these areas may affect the content or meeting of the given symptoms. Total time spent caring for the patient today was 20 minutes. This includes time spent before the visit reviewing the chart, time spent during the visit, and time spent after the visit and documentation.
[2024-12-28 11:16] VITALS: BP 132/70
--- OUTSIDE RECORDS SUMMARY | 2024-12-28 14:59 | XMS_ITS | Continuity of Care Document ---
Author Organization [facility] ter Address [address] [place] [id number] Care Team Providers Care Senior Graduate Advisor Name Role Phone Jude Nunez MD Primary Care Physician [phone] Encounter [facility] [place] Date(s): 12/13/24 - 12/17/[address] [address]- Discharge Disposition: Disch/Trans to IP Rehab or unit w/in Hos Attending Physician: Jason Davis DO Admitting Physician: Lyle Colunga MD Referring Physician: Lyle Colunga MD Encounter Type: Disch IP Allergies, Adverse Reactions, Alerts Substance Criticality Severity Reaction Reaction Severity Status MEGAN inhibitors Activ e Medications acetaminophen 325 mg oral tablet 975 mg, By Mouth, 3 times a day, Refills 0, Maintenance, 12/17/24 12:15:00 PM EST, Partial fill uponpatient request if the prescription is for a schedule II opioid drug. Start Date: 12/17/24 Status: Ordered Repeat number: 1 Acetaminophen Tablet 975 mg, Tablet, By Mouth, 12/17/24 9:00:00 AM EST Start Date: 12/17/24 Stop Date: 12/17/24 Status: Completed Repeat number: 1 alendronate 70 mg oral tablet 1 tablet = 70 mg, By Mouth, Every week, with 6-8 oz plain water, at least 30 minutes before first food, beverage, or medication of the day, # 13 tablet, 1 Refills, Maintenance, 11/22/22 2:57:00 PM EST, Tablet, [facility] 2174, 161.3, cm, 11/22/22 13:50:00 EST, Height, 53, kg, 06/26/22 9:55:00EDT, Dry Weight Start Date: 11/22/22 Status: Ordered Quantity: 13.0 Unit: tablet Repeat number: 2 Indication: Age-related osteoporosis without current pathological fracture amLODIPine 5 mg oral tablet 5 mg, By Mouth, Daily, Refills 0, Maintenance, 12/17/24 12:15:00 PM EST, Partial fill upon patient request if the prescription is for a schedule II opioid drug. Start Date: 12/17/24 Status: Ordered Repeat number: 1 amLODIPine 5 mg oral tablet 5 mg, Tablet, By Mouth, 12/17/24 9:00:00 AM EST Start Date: 12/17/24 Stop Date: 12/17/24 Status: Completed Repeat number: 1 bisacodyl 10 mg rectal suppository 1 supp = 10 mg, Rectally, Daily, PRN for constipation, # 10 supp, 0 Refills, Maintenance, 12/17/24 4:59:00 PM EST, Suppository, Partial fill upon patient request if the prescription is for a schedule II opioid drug. Start Date: 12/17/24 Status: Ordered Quantity: 10.0 Unit: supp Repeat number: 1 Calcium Citrate 315 mg + Vitamin D 250IU Tablet 1 tablet = 315 mg, By Mouth, 3 times a day, 0 Refills, Maintenance, 12/17/24 12:15:00 PM EST, Tablet, Partial fill upon patient request if the prescription is for a schedule II opioid drug. Start Date: 12/17/24 Status: Ordered Repeat number: 1 Docusate Sodium Capsule 100 mg, 1, capsule, By Mouth, 2 times a day, Refills 0, Maintenance, 12/17/24 12:15:00 PM EST, Partial fill upon patient request if the prescription is for a schedule II opioid drug. Start Date: 12/17/24 Status: Ordered Repeat number: 1 Enoxaparin 0.4 mL = 40 mg, Subcutaneous Injection, Daily, 0 Refills, Maintenance, 12/17/24 12:15:00 PM EST, Injection, Partial fill upon patient request if the prescription is for a schedule II opioid drug. Start Date: 12/17/24 Status: Ordered Repeat number: 1 hydrochlorothiazide 25 mg oral tablet 25 mg, 1, tablet, By Mouth, Daily, Refills 0, Maintenance, 11/23/16 10:21:33 AM EST Start Date: 11/23/16 Status: Ordered Repeat number: 1 Milk of Magnesia 8% oral suspension 30 mL = 2.4 Gm, By Mouth, 2 times a day, PRN for constipation, # 300 mL, 0 Refills, Maintenance, 12/17/24 4:58:00 PM EST, Suspension, Partial fill upon patient request if the prescription is for a schedule II opioid drug. Start Date: 12/17/24 Status: Ordered Quantity: 300.0 Unit: mL Repeat number: 1 MiraLax Powder 1 pack/packet = 17 Gm, By Mouth, Daily, PRN Constipation, 0 Refills, Maintenance, 12/17/24 12:15:00 PM EST, Powder, Partial fill upon patient request if the prescription is for a schedule II opioid drug. Start Date: 12/17/24 Status: Ordered Repeat number: 1 Multivitamin 1 tablet, By Mouth, Daily, 0 Refills, Maintenance, 07/01/17 10:07:23 AM EDT Start Date: 07/01/17 Status: Ordered Repeat number: 1 oxyCODONE 5 mg oral tablet 10 mg, 2, tablet, By Mouth, Every 4 hours, PRN, Refills 0, Tot. Refills 0, Maintenance, as needed for pain, 12/17/24 5:00:00 PM EST, Partial fill upon patient request if the prescription is for a schedule II opioid drug. Start Date: 12/17/24 Status: Ordered Repeat number: 1 oxyCODONE 5 mg oral tablet 5 mg, By Mouth, Every 4 hours, PRN, for 3 days, # 18 tablet, Refills 0, Tot. Refills 0, Acute 12/20/24 8:03:00 AM EST, Pain , Moderate, 12/17/24 8:03:00 AM EST, Print Requisition, Partial fill upon patient request if the prescription is for a schedule II opioid drug. Start Date: 12/17/24 Stop Date: 12/20/24 Status: Ordered Quantity: 18.0 Unit: tablet Repeat number: 1 OxyCODONE IR Tablet 10 mg, Tablet, By Mouth, Every 4 hours, Hold for: sedation and RR<12, PRN for Pain , Moderate, Routine, 12/16/24 8:09:00 AM EST Start Date: 12/16/24 Stop Date: 12/18/24 Status: Discontinued Repeat number: 1 OxyCODONE IR Tablet 5 mg, Tablet, By Mouth, Every 4 hours, Hold for: sedation and RR<12, PRN for Pain , Moderate, Routine, 12/17/24 8:32:00 AM EST Start Date: 12/17/24 Stop Date: 12/18/24 Status: Discontinued Repeat number: 1 senna 187 mg oral tablet 2 tablet = 17.2 mg, By Mouth, Daily at bedtime, 0 Refills, Maintenance, 12/17/24 12:15:00 PM EST, Tablet, Partial fill upon patient request if the prescription is for a schedule II opioid drug. Start Date: 12/17/24 Status: Ordered Repeat number: 1 Vitamin D3 2000 intl units oral capsule 1 capsule = 2,000 International_Units, By Mouth, Daily, 0 Refills, Maintenance, 09/05/17 1:05:52 PM EDT Start Date: 09/05/17 Status: Ordered Repeat number: 1 Problem List Condition Confirmation Course Effective Dates Status H ealth Status Informant Basal cell carcinoma Confirmed Active Closed subcapital fracture of left femur Confirmed Active Fall Confirmed Active Femoral neck fracture Confirmed Active S/P hip hemiarthroplasty Confirmed Active HTN (hypertension) Confirmed Active Hypokalemia Confirmed Active Leukocytosis Confirmed Active MGUS (monoclonal gammopathy of unknown significance) Confirmed Active Osteoporosis, postmenopausal Confirmed Active Vital Signs Most recent to oldest [Reference Range]: 1 2 3 4 5 Height 162 cm (12/17/24 11:04 AM) 162 cm (12/17/24 6:34 AM) 162 cm (12/17/24 4:40 AM) Weight 54 kg (12/15/24 6:02 AM) 54 kg (12/13/24 5:21 PM) Oxygen Saturation [94-100 %] 99 % (12/17/24 11:04 AM) 99 % (12/17/24 6:34 AM) 98 % (12/17/24 4:40 AM) Pulse Rate [55-90 bpm] 73 bpm (12/17/24 11:04 AM) 89 bpm (12/17/24 6:34 AM) 67 bpm (12/17/24 4:40 AM) Body Mass Index [18.5-24.99 kg/m2] 20.58 kg/m2 (12/15/24 6:02 AM) 20.58 kg/m2 (12/13/24 5:21 PM) Blood Pressure [90-138/55-84 mm Hg] 138/63mm Hg (12/17/24 11:04 AM) 169/83mm Hg *H* (12/17/24 7:52 AM) 169/83mm Hg *H* (12/17/24 6:34 AM) Respiratory Rate [16-30 br/min] 18 br/min (12/17/24 1:38 PM) 18 br/min (12/17/24 11:04 AM) 18 br/min (12/17/24 8:44 AM) 18 br/min (12/17/24 8:44 AM) 18 br/min (12/17/24 8:44 AM) Temperature [96.8-100.4 DegF] 100.2 DegF (12/17/24 11:04 AM) 98.4 DegF (12/17/24 4:40 AM) 98.0 DegF (12/16/24 11:50 PM) Mode of Delivery (Oxygen) Room air (12/17/24 11:04 AM) Room air (12/17/24 6:34 AM) Room air (12/17/24 4:40 AM) Blood pressure sites Arm, right (12/17/24 11:04 AM) Arm, right (12/17/24 6:34 AM) Arm, right (12/17/24 4:40 AM) Temperature Route Oral (12/17/24 11:04 AM) Oral (12/17/24 4:40 AM) Oral (12/16/24 11:50 PM) Dry Weight 54 kg (12/13/24 5:21 PM) Social History Social History Type Response Smoking Status Never (less than 100 in lifetime) entered on: 04/23/23 Sex Sex Representation Female (finding) History and physical note * Spencer QUIROZ, Rocco: PERFORM, MODIFY, MODIFY Event Display: History and Physical Hospital Authored Date: Patient: ??ROBBIE MCDONOUGH ? Age:??74 Years?Sex:??Female?:??1950?? Chief Complaint/Reason for Consultation Left hip pain History of Present Illness Patient seen on 12/13/2024 ?? Information per [facility] [place] tx- 74 year old female with HTN here after a mechanical fall with a hip fx. Accepted to ortho service but pt arrived after 4pm so now they are refusing to admit the pt. Needs pre-op clearance. from ortho was not happy that the pt didn't automatically go to med service when she arrived late....may need convo with med director ?? Information per patient 74-year-old female with past medical history of hypertension, MGUS, osteoporosis, basal cell carcinoma presented to [facility] status post fall. Patient stated she was at the grocery store and was trying to reach for something when she lost herbalance and fell on the floor landing on the left side of her body.?? Denies hitting her head.?? Post fall patient noticed pain around the left hip area.?? Patient denies any preceding chest pain, dizziness, shortness of breath or palpitations.?? Denies any loss of consciousness. Patient reports she has been in her usual state of health with no recent illnesses.?? Denies any fever, chills, cough, headache, runny nose or myalgias.?? Denies any nausea, vomiting, abdominal pain,constipation or diarrhea.?? Denies any leg swelling or prolonged immobilization. Patient's workup at outside hospital revealed labs with leukocytosis and imaging revealing a left femoral neck fracture.?? Patient was transferred to [facility] for further management. Review of Systems Pertinent positives??as per HPI. ??All other systems reviewed and negative Objective Vital Signs?? Temperature: 98 DegF (12/13/24 17:21:00) Temperature Route: Oral (12/13/24 17:21:00) Pulse Rate: 79 bpm (12/13/24 17:21:00) Respiratory Rate: 18 br/min (12/13/24 19:29:00) Systolic Blood Pressure: 133 mm Hg (12/13/24 17:21:00) Diastolic Blood Pressure: 69 mm Hg (12/13/24 17:21:00) Blood pressure sites: Arm, right (12/13/24 17:21:00) Mean Arterial Pressure: 90 mm Hg (12/13/24 17:21:00) Pulse Pressure: 64 mm Hg (12/13/24 17:21:00) Oxygen Saturation: 97 % (12/13/24 17:21:00) Mode of Delivery (Oxygen): Room air (12/13/24 17:21:00) Early Warning Score: 0 (12/13/24 19:43:15) ? Physical Exam GENERAL:??In no apparent distress HEENT:??Head normocephalic, PERRL,Moist mucous membrane. Neck supple CARDIOVASCULAR:??Normal rate and rhythm, no murmurs, no rubs, no gallops RESPIRATORY:??Lungs clear to auscultation, no wheezes , no crackles ABDOMEN/GI:??Nondistended, soft, nontender, normal bowel sounds EXTREMITIES:??No ??pitting edema PACKAGE PICK UP:??Alert and oriented x 3.Non focal neuro exam. PSYCHIATRIC: Calm and co-operative HEME:??No??lymphadenopathy. SKIN: Warm and dry. Assessment/Plan Assessment:??74-year-old female with past medical history of hypertension, MGUS, osteoporosis, basal cell carcinoma presented to [facility] status post fall, workup notable for??labs with leukocytosis??in the absence of fever??mildly low potassium,??pelvics x-ray??with left femoral neck fracture, transferred to??[facility] for??further management. ?? Fall (W19.XXXA) Femoral neck fracture (S72.009A) ? Secondary to mechanical fall Patient already seen by orthopedics??with plans for possible surgery tomorrow Patient will be n.p.o. after midnight Pain control??as ordered per orthopedics with as needed Tylenol/oxycodone Patient is functional and independent at baseline.?? I reviewed her EKG which has??a right bundle branch block??and T wave inversions in V1???V3. ??No prior EKGs available for comparison.?? Patient has no??known cardiac conditions and denies any??shortness of breath, chest pain??or palpitations at baseline.?? I suspect this is her baseline EKG.?? Unless symptomatic do not think he needs further workup. Based on [place] perioperative??risk for AR/cardiac??arrest postsurgery patient's risk is 0.2%.??No further??cardiac testing recommended prior to??planned surgery. ?? Hypertension (I10):??Continue??amlodipine and hydrochlorothiazide.??Replete low potassium ?? Leukocytosis (D72.829):??Patient afebrile.??Chest x-ray negative for pneumonia.?Check UA.?Patient feels it is chronic??related to her MGUS. ??Will monitor.?If patient spikes a temp will??send blood cultures??and consider appropriate antibiotics based on the source. ?? VTE Prophylaxis:??Patient on Lovenox subcutaneously ?VTE Prophylaxis Assessment:??VTE Prophylaxis Ordered ?? Discharge Planning:??Hospital stay 2 to 3 days ?? Ongoing Medical Necessity:??Femoral neck fracture ?? Code Status:??Full. ?Order Code Status:??Code Status Ordered ? Histories Allergies Allergies ?(Active and Proposed Allergies Only) MEGAN inhibitors? (Severity: Unknown severity, Onset: Unknown) ?? Past Medical History/Problem List Osteoporosis, postmenopausal ?? Past Surgical History No surgery history documented. ?? Social History Alcohol Details:??Use: Current. ??Frequency: 1-2 times per week. Substance Abuse Details:??Use: Never. Tobacco Details:??Use: Never (less than 100 in lifetime). Details:??Never smoker Electronic Cigarette/Vaping Details:??Electronic Cigarette Use: Never. ?? Family History No Family History documented. Medications Home Medications Alendronate (alendronate 70 mg oral tablet)?1?tab(s)?70?Milligram?By Mouth?Every week?with 6-8 oz plain water, at least 30 minutes before first food, beverage, or medication of the day Cholecalciferol (Vitamin D3 2000 intl units oral capsule)?1?capsule?2,000?InternationalUnit?By Mouth?Daily Hydrochlorothiazide (hydrochlorothiazide 25 mg oral tablet)?25?Milligram?1?tablet?ByMouth?Daily Multivitamin?Daily Results ?? Test Name Test Result Date/Time WBC 19.3 k/mm3 12/13/2024 13:48 EST WBC 11.4 k/mm3 06/29/2024 14:26 EDT Hgb 14.7 Gm/dL 12/13/2024 13:48 EST Platelet Count 289 k/mm3 12/13/2024 13:48 EST Sodium 140 mmol/L 12/13/2024 13:48 EST Potassium 3.3 mmol/L 12/13/2024 13:48 EST Chloride 101 mmol/L 12/13/2024 13:48 EST Bicarbonate Level 26 mmol/L 12/13/2024 13:48 EST Anion Gap 13 12/13/2024 13:48 EST Glucose Level 94 mg/dL 12/13/2024 13:48 EST BUN 18 mg/dL 12/13/2024 13:48 EST Creatinine-Blood 0.38 mg/dL 12/13/2024 13:48 EST Estimated GFR Creatinine 105 ML/MIN/1.73 M2 12/13/2024 13:48 EST Calcium 9.5 mg/dL 12/13/2024 13:48 EST Alkaline Phosphatase 118 units/L 12/13/2024 13:48 EST AST (SGOT) 26 units/L 12/13/2024 13:48 EST ALT (SGPT) 26 units/L 12/13/2024 13:48 EST Procedure ?Other Procedure ?EKG???normal sinus rhythm at 77, left axis deviation, right bundle branch block, QTc 484, T wave inversions in lead V1, V2, V3( No prior EKGs available) ?(12/13/2024 11:58 EST Chest Single Frontal View) IMPRESSION:?? No acute abnormality. [1] ?? (12/13/2024 11:57 EST XR Hip w/Pelvis 2-3 View Left) IMPRESSION:? Left femoral neck fracture as above.?? [2] [1]??Chest Single Frontal View; Lupe QUIROZ, Clotilde 12/13/2024 11:58 EST [2]??XR Hip w/Pelvis 2-3 View Left; Jamie QUIROZ, Rosa Willams 12/13/2024 11:57 EST Hospital Progress note * Yvonne Bob: MODIFY, PERFORM Event Display: Progress Note Hospital Authored Date: [id number] Patient: ??ROBBIE MCDONOUGH ? Age:??74 Years?Sex:??Female?:??1950?? Provider Clinical Summary POD#2 Subjective Patient seen and examined.?? Notes reviewed.?? She was in the PT gym working with PT.?? She was standing with her walker, preparing to walk.?? She was hoping to be discharged to rehab later today.?? No orthopedic questions or concerns. Objective Vitals & Measurements T:??98.4?F?? TMIN:??97.8?F?? TMAX:??99.2?F?? HR:??89??(Peripheral)?? RR:??18?? RR:??18?? RR:??18?? BP:??169/83?? SpO2:??99%?? Physical Exam Gen: Patient standing with walker??in PT gym.?? She is fully dressed.?? NAD. Did not examine further since patient working with PT Assessment/Plan 74 year old female POD#2 s/p Left Hemiarthroplasty - Overall care per primary team - OOB with PT, WBAT LLE - DVT prophylaxis: Lovenox ? - Would recommend at least ASA 81 mg BID for 28 days - Maintain aquacel for 7-10 days, may be changed sooner if soiled - Encourage ice to left him, large bag applied today - Pain control per primary team - D/c planning: Per primary team ? -??Ok to discharge from orthopedic standpoint - Follow up with Dr. Moody in 2 weeks, [phone] - Please page [phone] with questions/concerns * Armin Person RN: PERFORM, SIGN, VERIFY Event Display: Progress Note Hospital Authored Date: [id number] Patient: ROBBIE MCDONOUGH Age: 74 years Sex: Female : 1950 Associated Diagnoses: None Author: Armin Person RN Findings Problem Related to Alteration in Musculoskeletal : Alteration in Musculoskeletal Func/new 12/17/2024 8:00 EST Alteration in Musculoskeletal Related to Mobility, Orthopedic Procedure, Total joint replacement, Other: L femoral neck fx. Left hip hemiarthroplasty 12/15 Dr. Moody Goals & Outcomes, Musculoskeletal Affected extremity will maintain color/motion/sensation, Pt able to perform ADL's to best of ability, Pt demonstrates precautions/exercise/ transfers per protocol, Pt will ambulate safely with assistive device, Pt will be free from complications of immobility, Pt will demonstrate ability to participate in ADL's, Pt will report acceptable level of comfort/painrelief Interventions, Musculoskeletal Monitor patients ambulation status, monitor Color/Motion/Sensation, Encourage deep breathing & coughing exercises, Teach pt/caregiver on use of pain scale BH Goals/Interventions, Musculoskeletal Yes Musculoskeletal, Problem Start 12/17/2024 1:19 Reviewed Plan with, Musculoskeletal Patient Patient Progression, Musculoskeletal Pt progressing according to plan . Nursing Data Vital Signs : VITAL SIGNS SECTION 12/17/2024 6:34 EST Pulse Rate 89 bpm Respiratory Rate 16 br/min Systolic Blood Pressure 169 mm Hg H Diastolic Blood Pressure 83 mm Hg Blood pressure sites Arm, right Mean Arterial Pressure 112 mm Hg Pulse Pressure 86 mm Hg Oxygen Saturation 99 % Mode of Delivery (Oxygen) Room air . Pain Data : PAIN SECTION 12/17/2024 8:54 EST 1 - 10 Pain Scale Score 4 . Narrative/Incidental Pt A+Ox4, cooperative with care. LS clear, pt denies SOB, using IS properly. Pt denies CP. +BSx4, no N/V, tolerating diet, BM 12/16. OOB with PT; 1-2 assist. Voiding adequate clear yellow urine via primafit. VSS. Evaluation Pt reporting L hip pain up to 06/10. Pain managed well with 5mg oxycodone and tylenol. L hip aquaceldsg with small amount of serosang staining, otherwise c/d/i. Ice applied. +CMS, +PP. +d/p flex. Cboots in place. Will cont to monitor comfort/LLE status. * Valente Chu RN: PERFORM, SIGN, VERIFY Event Display: Progress Note Hospital Authored Date: Patient: ROBBIE MCDONOUGH Age: 74 years Sex: Female : 1950 Associated Diagnoses: None Author: Valente Chu RN Findings Problem Related to Alteration in Musculoskeletal : Alteration in Musculoskeletal Func/new 12/17/2024 1:00 EST Alteration in Musculoskeletal Related to Mobility, Orthopedic Procedure, Total joint replacement, Other: L femoral neck fx. Left hip hemiarthroplasty 12/15 Dr. Moody Goals & Outcomes, Musculoskeletal Affected extremity will maintain color/motion/sensation, Pt able to perform ADL's to best of ability, Pt demonstrates precautions/exercise/ transfers per protocol, Pt will ambulate safely with assistive device, Pt will be free from complications of immobility, Pt will demonstrate ability to participate in ADL's, Pt will report acceptable level of comfort/painrelief Interventions, Musculoskeletal Monitor patients ambulation status, monitor Color/Motion/Sensation, Assist with repositioning, Encourage deep breathing & coughing exercises, Obtain assistive devices as needed, Teach & Encourage use of Incentive spirometer, Teach Pt/caregiver on ADL's & adaptive equipment, Teach Pt/caregiver on exercises, Teach pt/caregiver on use of pain scale Goals/Interventions, Musculoskeletal Yes Musculoskeletal, Problem Start 12/17/2024 1:19 Reviewed Plan with, Musculoskeletal Patient Patient Progression, Musculoskeletal Pt progressing according to plan . Nursing Data Vital Signs : VITAL SIGNS SECTION 12/16/2024 23:50 EST Temperature 98.0 DegF Temperature Route Oral Pulse Rate 63 bpm Respiratory Rate 20 br/min Systolic Blood Pressure 125 mm Hg Diastolic Blood Pressure 63 mm Hg Blood pressure sites Arm, right Mean Arterial Pressure 84 mm Hg Pulse Pressure 62 mm Hg Oxygen Saturation 98 % Mode of Delivery (Oxygen) Room air 12/16/2024 22:32 EST Respiratory Rate Not Done: Patient Sleeping (Not Done) 12/16/2024 20:19 EST Early Warning Score 2.00 12/16/2024 20:18 EST Temperature 97.8 DegF Temperature Route Oral Pulse Rate 68 bpm Respiratory Rate 20 br/min Systolic Blood Pressure 140 mm Hg H Diastolic Blood Pressure 64 mm Hg Blood pressure sites Arm, right Mean Arterial Pressure 89 mm Hg Pulse Pressure 76 mm Hg Oxygen Saturation 98 % Mode of Delivery (Oxygen) Room air . Narrative/Incidental Pt is POD#1 for a left hip tia with Dr. Moody. Pt is A+Ox3, VSS. Lung sounds clear, pt denies any SOB or chest pain. Abdomen s/nt/nd, +BS, LBM 12/16. Primafit in place and pt voiding with no issues. Cboots on and pt given lovenox for DVT prophylaxis. Pt [facility] bed as ordered. Evaluation P: Alteration in Musculoskeletal I: Interventions in care plan E: Pt OOB 1 assist with the walker, +PP, +CMS, +D/P. Left hip aquacel dressing in place and is C/D/I. Ice in place on hip. Pt given sched tylenol for minimal pain. Pt does have PRN oxy if needed and knows to ring for it if needed. Will continue to monitor pt for pain and continue to monitor CMS. Discharge Information Rehabilitation Discharge : Rehab Discharge Index 12/16/2024 16:13 EST Walker: distance 20-50 12/16/2024 14:58 EST Comments on treatment indicated ADLs, fxl. mob, bal. training, safety precautions, d/c planning Full chart review completed Yes Hospital course Pt. found to have left femoral neck fracture. Pt. s/p Left hip hemiarthroplasty by Dr. Moody on 12/15/2024. LLE WBAT 12/16/2024 8:50 EST Comments on treatment indicated 74 yo F presenting with L hip fx 2' fall.Now s/p Left hip hemiarthroplasty by Dr. Moody on 12/15/2024. LLE WBAT.SKilled PT for therex, bed mob, transfers, amb c RW, stairs. Rec post-acute rehab. Walker: distance < 10 Distance pt will ambulate 25ft with RW Full chart review completed Yes Hospital course see comment Other findings Patient is a low complexity eval Plan of care PT Gait training, Transfer training, Therapeutic exercise, Functional Activities, Balance training, Neuromuscular education Note * Armin Person RN: PERFORM Event Display: Discharge/Transfer Note Hospital Authored Date: [id number] Nursing Discharge Note Entered On: 12/17/2024 16:01 EST Performed On: 12/17/2024 16:00 EST by Armin Person RN Nursing Discharge Note 2 Discharge Time : 12/17/2024 15:30 EST Discharge Level of Care at Discharge : Short-term Acute Inpatient Discharge Nursing Homes/Rehab Facilities : [facility] [phone] Patient Left Unit Via : Wheelchair Patient Accompanied Off Unit with : Significant other DC Instructions Provided & Signed by Pt : Yes Patient Understands D/C Instructions : Yes Patient Instructions Discharge Signed : Yes Did Pt have Specialty Bed or Wound Vac : No Armin Person RN - 12/17/2024 16:00 EST * Jason Davis DO: PERFORM Event Display: Discharge/Transfer Note Hospital Authored Date: Patient: ??ROBBIE MCDONOUGH ? Age:??74 Years?Sex:??Female?:??1950?? Patient Information [facility]charge Location: [facility] Primary Care Physician: Jude Nunez MD Admit Date/Time: 12/13/2024 16:58 Discharge Date:??12/17/2024 12:15 Discharge Disposition Discharge Disposition: Group Home Facility/Rehab Discharge Diagnosis Femoral neck fracture (S72.009A) Fall (W19.XXXA) Hypertension (I10) Leukocytosis (D72.829) Closed subcapital fracture of left femur (S72.012A) _ Discharge Medications Acetaminophen (acetaminophen 325 mg oral tablet)?975?Milligram?By Mouth?3 times a day Alendronate (alendronate 70 mg oral tablet)?1?tab(s)?70?Milligram?By Mouth?Every week?with 6-8 oz plain water, at least 30 minutes before first food, beverage, or medication of the day Amlodipine (amLODIPine 5 mg oral tablet)?5?Milligram?By Mouth?Daily Calcium And Vitamin D Combination (Calcium Citrate 315 mg + Vitamin D 250IU Tablet)?1?tab(s)?315?Milligram?By Mouth?3 times a day Cholecalciferol (Vitamin D3 2000 intl units oral capsule)?1?capsule?2,000?InternationalUnit?By Mouth?Daily Docusate (Docusate Sodium Capsule)?100?Milligram?1?capsule?By Mouth?2 times a day Enoxaparin?0.4?Milliliter?40?Milligram?Subcutaneous Injection?Daily Hydrochlorothiazide (hydrochlorothiazide 25 mg oral tablet)?25?Milligram?1?tablet?ByMouth?Daily Multivitamin?Daily?1?tab(s)?By Mouth Oxycodone (oxyCODONE 5 mg oral tablet)?5?Milligram?By Mouth?Every 4 hours?as needed?for 3?Days?Pain , Moderate Polyethylene Glycol 3350 (MiraLax Powder)?1?pack/packet?17?gram?By Mouth?Daily?as needed?Constipation Senna (senna 187 mg oral tablet)?2?tab(s)?17.2?Milligram?By Mouth?Daily at bedtime ? Future Appointments Saturday 10:00 AM EST ?? Where: [facility] [address] [address]- Status: Pending Saturday 2:00 PM EST ?? Where: [facility] [address] [place] [address]- Status: Pending Hospital Course 74-year-old female with past medical history of hypertension, MGUS, osteoporosis, basal cell carcinoma presented to [facility] status post fall, workup notable for??labs with leukocytosis??in theabsence of fever??mildly low potassium,??pelvics x-ray??with left femoral neck fracture, transferred to??[facility] for??further management now s/p Hemiarthroplasty of left hip ?? Fall (W19.XXXA) Femoral neck fracture (S72.009A) Secondary to mechanical fall POD2 Pain controlled??with scheduled Tylenol, oxycodone as needed for moderate pain?? - OOB with PT, WBAT LLE - DVT prophylaxis: Lovenox - Maintain aquacel for 7-10 days, may be changed sooner if soiled - Encourage ice to left him, large bag applied today - Follow up with Dr. Moody in 2 weeks, [phone] requires rehab at this time. ?? Hypertension (I10):??Continue??amlodipine and hydrochlorothiazide.? Leukocytosis (D72.829):??Patient afebrile.??Chest x-ray negative for pneumonia.?Patient feels it is chronic??related to her MGUS. ??Will monitor.?If patient spikes a temp will??send blood cultures??and consider appropriate antibiotics based on the source. UA with pyuria and nitrites but patient not endorsing any urinary symptoms ? Code Status:??Full. ?Order Code Status:??Code Status Ordered ? Objective Vital Signs?? Temperature: 100.2 DegF (12/17/24 11:04:00) Temperature Route: Oral (12/17/24 11:04:00) Pulse Rate: 73 bpm (12/17/24 11:04:00) Respiratory Rate: 18 br/min (12/17/24 11:04:00) Systolic Blood Pressure: 138 mm Hg (12/17/24 11:04:00) Diastolic Blood Pressure: 63 mm Hg (12/17/24 11:04:00) Blood pressure sites: Arm, right (12/17/24 11:04:00) Mean Arterial Pressure: 88 mm Hg (12/17/24 11:04:00) Pulse Pressure: 75 mm Hg (12/17/24 11:04:00) Oxygen Saturation: 99 % (12/17/24 11:04:00) Mode of Delivery (Oxygen): Room air (12/17/24 11:04:00) Early Warning Score: 0 (12/17/24 11:05:37) ? . Physical Exam General:??NAD Head:??NCAT Eyes:??EOMI Ear, Nose and Throat:??MMM Respiratory:??CTA Cardiovascular:RRR Gastrointestinal:??soft nt nd Neurologic :alert and oriented ?? Surgical Procedures Hemiarthroplasty Hip 12/15/2024 08:46 Consultants ortho Pending Results No Pending Results Follow-Up Appointments Added Follow Up ?Time Frame ?Comments Fransisco QUIROZ, Levy Suggs?2 to 3 weeks Po Jude QUIROZ Home Health Face to Face ^HomeHealthFTF Results Discharge Labs BLOOD BANK Blood Type B Positive ()?? 12/14/2024 11:51 Antibody Screen Negative ()?? 12/14/2024 11:51 ?? BLOOD COUNT & DIFF WBC 10.0 k/mm3 ()?? 12/17/2024 02:34 RBC 4.46 m/mm3 ()?? 12/17/2024 02:34 Hgb 13.4 Gm/dL ()?? 12/17/2024 02:34 Hct 39.3 % ()?? 12/17/2024 02:34 MCV 88.1 femtoliters ()?? 12/17/2024 02:34 MCH 30.0 pg ()?? 12/17/2024 02:34 MCHC 34.1 Gm/dL ()?? 12/17/2024 02:34 Platelet Count 262 k/mm3 ()?? 12/17/2024 02:34 RDW-SD 39.6 femtoliters ()?? 12/17/2024 02:34 MPV 9.6 femtoliters ()?? 12/17/2024 02:34 Nucleated RBC (Automated) 0.0 #/100 WBC'S ()?? 12/17/2024 02:34 Abs. NRBC 0.0 k/mm3 ()?? 12/17/2024 02:34 Abs. Neut 6.3 k/mm3 ()?? 12/17/2024 02:34 Abs. Lymph 2.4 k/mm3 ()?? 12/17/2024 02:34 Abs. [place] 1.0 k/mm3 (High)?? 12/17/2024 02:34 Abs. Eo 0.1 k/mm3 ()?? 12/17/2024 02:34 Abs. Baso 0.1 k/mm3 ()?? 12/17/2024 02:34 Neut % 63.6 % ()?? 12/17/2024 02:34 Lymph % 23.7 % ()?? 12/17/2024 02:34 [place] % 10.4 % ()?? 12/17/2024 02:34 Eos % 1.4 % ()?? 12/17/2024 02:34 Baso % 0.5 % ()?? 12/17/2024 02:34 Imm Gran 0.4 % ()?? 12/17/2024 02:34 Abs. Imm Gran 0.0 k/mm3 ()?? 12/17/2024 02:34 ?? CHEM GENERAL Sodium 140 mmol/L ()?? 12/17/2024 02:34 Potassium 3.5 mmol/L (Low)?? 12/17/2024 02:34 Chloride 99 mmol/L ()?? 12/17/2024 02:34 Bicarbonate Level 29 mmol/L ()?? 12/17/2024 02:34 Anion Gap 12 ()?? 12/17/2024 02:34 Glucose Level 95 mg/dL ()?? 12/15/2024 00:14 BUN 11 mg/dL ()?? 12/17/2024 02:34 Creatinine-Blood 0.38 mg/dL (Low)?? 12/17/2024 02:34 Estimated GFR Creatinine 105 ML/MIN/1.73 M2 ()?? 12/17/2024 02:34 Magnesium 2.1 mg/dL ()?? 12/16/2024 02:48 ?? COAG INR 1.1 ()?? 12/13/2024 21:54 Protime (PT) 11.5 seconds (High)?? 12/13/2024 21:54 ?? UA/URINALYSIS Appear/Color, Urine LIGHT YELLOW ()?? 12/13/2024 21:20 Specific [place], Urine 1.014 ()?? 12/13/2024 21:20 pH, Urine 7.0 ()?? 12/13/2024 21:20 Albumin, Urine NEGATIVE ()?? 12/13/2024 21:20 Glucose, Urine NEGATIVE ()?? 12/13/2024 21:20 Ketones, Urine 1+ (Abnormal)?? 12/13/2024 21:20 Bilirubin, Urine NEGATIVE ()?? 12/13/2024 21:20 Hemoglobin, Urine NEGATIVE ()?? 12/13/2024 21:20 Nitrite, Urine POSITIVE (Abnormal)?? 12/13/2024 21:20 Leukocyte, Urine 1+ (Abnormal)?? 12/13/2024 21:20 Urobilinogen NORMAL mg/dL ()?? 12/13/2024 21:20 WBC's, Urine 15 /HPF (High)?? 12/13/2024 21:20 RBC's, Urine NONE SEEN /HPF ()?? 12/13/2024 21:20 Bacteria SLIGHT HPF (Abnormal)?? 12/13/2024 21:20 Squamous Epith <1 /HPF ()?? 12/13/2024 21:20 Mucus SLIGHT /LPF ()?? 12/13/2024 21:20 Hold Urine Culture Testing available 48 hours from time of collection. ()?? 12/13/2024 21:20 ? URINE OTHER Est Creatinine Clearance 110.72 mL/min ()?? 12/16/2024 04:00 ? _40 ??minutes spent on discharge * Armin Person RN: PERFORM Event Display: Patient Education/Instruction Authored Date: [id number] Inpatient Adult Discharge Instructions. [address] [address] Name: ROBBIE MCDONOUGH : 1950?? Visit: 12/13/2024 16:58?? Current Date: 12/17/2024 13:52 ?? Account: [id number]?? Inpatient Adult Discharge Instructions We would like to thank you for allowing us to assist you with your healthcare needs. The following includes patient education materials and information regarding your injury/illness. Our entire staffstrives to provide an excellent experience for our patients and their families. PLEASE ENSURE YOU FOLLOW-UP PER THE INSTRUCTIONS BELOW! ?? YOUR OPINION IS IMPORTANT TO US! Please complete the survey you may receive by mail or email. Your feedback will be used to make improvements to the healthcare experiences of our patients and their families. Surveys are administered by [employer] ?? If further treatment with your primary care physician or another doctor is recommended, it is important for you to keep the appointment. Call your primary care physician or return to the Emergency Department immediately if your condition worsens, fails to improve, or new symptoms develop. If you need to find a doctor, you can call [facility] Link for a referral at [phone] or toll free at [phone] or log in to [email or web address].. ?? [facility], in keeping with [facility] guidance, no longer requires face masks for staff, patientsor visitors in most situations. Similiar to time spent indoors at other locations, there is the chance that you were exposed to repiratory viruses during your time with us (such as flu or COVID-19). If you develop symptoms concerning for a viral respiratory infection, please seek testing (and treatment if indicated) from your medical provider or home test kit. ?? You can view and manage your care through the patient portal or by using a health care sandra of your choosing. [employer] is a website that allows you to securely view your medical information including your hospital discharge summary, office visit summaries, medications and follow-up visits. You can also request appointments, renew medications, and request access to your medical information using a health care sandra of your choosing, or just ask a question. You can enroll at [email or web address] or register during your next office visit. You have been discharged from [facility], Patient Care Unit: SW7??. If you have any questions regarding these instructions, including results of studies pending, afteryou leave, please call us and we will be happy to assist you 24/06. [facility] Your Care Team Attending Physician Ryan DO, Sucheric S?? Consulting Providers Ryan DO, Jason S?? Discharging Providers Ryan DO, Jason S Your Diagnosis Femoral neck fracture Fall Hypertension Leukocytosis Closed subcapital fracture of left femur Tests Performed Below is a partial list of the tests performed during your hospitalization. You may have had other tests and procedures not included in this list. Please discuss all test results with your provider. BUN CBC CBC w/ Differential Creatinine Electrolytes Glucose Level INR Lytes Magnesium Level Type and Screen Urinalysis w/hold for Urine Culture BUN?? CBC?? CBC w/ Differential?? Creatinine?? Electrolytes?? Glucose Level?? INR?? Magnesium Level?? Type and Screen?? Urinalysis w/hold for Urine Culture?? Primary Care Provider Jude Nunez MD? Advance Directive Health Care Proxy on File No Patient refuses to discuss Discharge Vitals Temperature: 100.2 DegF Height: 162 cm Pulse Rate: 73 bpm Weight: 54 kg Respiratory Rate: 18 br/min Body Mass Index: 20.58 kg/m2 Systolic Blood Pressure: 138 mm Hg Body surface area: 1.56 Diastolic Blood Pressure: 63 mm Hg ?? Oxygen Saturation: 99 % ?? Studies Pending All studies ordered during this hospital stay have been completed unless listed below. Please discuss all pending results with your provider listed above in these instructions. ?? No incomplete studies found?? What to do next Instructions From Your Doctor ?? Orders? 12/17/24 13:06:00 EST?? Scheduled Follow-Up Appointments Saturday 10:00 AM EST ?? Where: [address] [place], [place] [address] [address]- Status: Pending Saturday 2:00 PM EST ?? Where: [facility] [address] [place] [address]- Status: Pending You Need to Schedule the Following Appointments Follow Up with??Levy Moody MD When:??Within 2 to 3 weeks Where: [address], [address] [facility] [place] [address]- Follow Up with??Jude Nunez MD Where: [address] [place] [address]- Discharge Medications ROBBIE MCDONOUGH :1950 Visit Date:12/13/2024 Medications: Please continue your medications until treatment is completed or stopped by your provider. Medications not listed below should be discontinued. Discuss any questions related to medications with your provider. What How Much When Why Instructions Next Dose New Acetaminophen (acetaminophen 325 mg oral tablet) 975 Milligram Oral 3 times a day 12/17 2099 New Calcium And Vitamin D Combination (Calcium Citrate 315 mg + Vitamin D 250IU Tablet) 315 Milligram Oral 3 times a day 12/17 2099 New Docusate (Docusate Sodium Capsule) 100 Milligram Oral Twice a day 12/17 2099 New Enoxaparin 40 Milligram Subcutaneous Injection Daily 12/17 2099 New Oxycodone (oxyCODONE 5 mg oral tablet) 5 Milligram Oral Every 4 hours as needed for Pain , Moderate Duration: 3 Days Printed Prescription 12/17 1799 New Polyethylene Glycol 3350 (MiraLax Powder) 17 gram Oral Daily as needed for Constipation as needed New Senna (senna 187 mg oral tablet) 2 tab(s) Oral Daily at Bedtime as needed Changed Amlodipine (amLODIPine 5 mg oral tablet) 5 Milligram Oral Daily 12/18 899 Changed Multivitamin 1 tab(s) Oral Daily 12/18 899 Unchanged Alendronate (alendronate 70 mg oral tablet) 1 tab(s) Oral Every week Osteoporosis, postmenopausal with 6-8 oz plain water, at least 30 minutes before first food, beverage, or medication of the day ?? Unchanged Cholecalciferol (Vitamin D3 2000 intl units oral capsule) 1 capsule Oral Daily 1/17 0900 Unchanged Hydrochlorothiazide (hydrochlorothiazide 25 mg oral tablet) 1 tab(s) Oral Daily 12/18 0900 Prescription Given During Visit Oxycodone (oxyCODONE 5 mg oral tablet) - 5 mg, By Mouth, Every 4 hours, # 18 tablet, 0 Refills?? Laboratory Results Below is a partial list of the most recent Laboratory test results done prior to this discharge. You may have had other tests and procedures not included in this list. Please discuss all test resultswith your provider. Est Creatinine Clearance - 110.72 mL/min (12/16/2024) BUN (12/17/2024) ???BUN - 11 mg/dL CBC (12/16/2024) ???WBC - 11.8 k/mm3???RBC - 4.41 m/mm3???Hgb - 13.5 Gm/dL???Hct - 39.6 %???MCV - 89.8 femtoliters???MCH - 30.6 pg???MCHC - 34.1 Gm/dL???Platelet Count - 245 k/mm3???RDW-SD - 41.0 femtoliters???MPV - 9.2 femtoliters???Nucleated RBC (Automated) - 0.0 #/100 WBC'S???Abs. NRBC - 0.0 k/mm3 CBC w/ Differential (12/17/2024) ???WBC - 10.0 k/mm3???RBC - 4.46 m/mm3???Hgb - 13.4 Gm/dL???Hct - 39.3 %???MCV - 88.1 femtoliters???MCH - 30.0 pg???MCHC - 34.1 Gm/dL???Platelet Count - 262 k/mm3???RDW-SD - 39.6 femtoliters???MPV - 9.6 femtoliters???Nucleated RBC (Automated) - 0.0 #/100 WBC'S???Abs. NRBC - 0.0 k/mm3???Abs. Neut - 6.3 k/mm3???Abs. Lymph - 2.4 k/mm3???Abs. [place] - 1.0 k/mm3???Abs. Eo - 0.1 k/mm3???Abs. Baso - 0.1 k/mm3???Neut % - 63.6 %???Lymph % - 23.7 %???[place] % - 10.4 %???Eos % - 1.4 %???Baso % - 0.5 %???Imm Gran - 0.4 %???Abs. Imm Gran - 0.0 k/mm3 Creatinine (12/17/2024) ???Creatinine-Blood - 0.38 mg/dL???Estimated GFR Creatinine - 105 ML/MIN/1.73 M2 Electrolytes (12/17/2024) ???Sodium - 140 mmol/L???Potassium - 3.5 mmol/L???Chloride - 99 mmol/L???Bicarbonate Level - 29 mmol/L???Anion Gap - 12 Glucose Level (12/15/2024) ???Glucose Level - 95 mg/dL INR (12/13/2024) ???INR - 1.1???Protime (PT) - 11.5 seconds Lytes (12/14/2024) ???Sodium - 140 mmol/L???Potassium - 3.7 mmol/L???Chloride - 101 mmol/L???Bicarbonate Level - 28 mmol/L???Anion Gap - 11 Magnesium Level (12/16/2024) ???Magnesium - 2.1 mg/dL Type and Screen (12/14/2024) ???Blood Type - B Positive???Antibody Screen - Negative Urinalysis w/hold for Urine Culture (12/13/2024) ???Appear/Color, Urine - LIGHT YELLOW???Specific [place], Urine - 1.014???pH, Urine - 7.0???Albumin, Urine - NEGATIVE???Glucose, Urine - NEGATIVE???Ketones, Urine - 1+???Bilirubin, Urine - NEGATIVE???Hemoglobin, Urine - NEGATIVE???Nitrite, Urine - POSITIVE???Leukocyte, Urine - 1+???Urobilinogen - NO RMAL? ?WBC's, Urine - 15 /HPF? ?RBC's, Urine - NONE SEEN? ?Bacteria - SLIGHT? ?Squamous Epith - <1 /HPF???Mucus - SLIGHT???Hold Urine Culture - Testing available 48 hours from time of collection. You will be contacted within 72 hours with your results. Allergies (NKA means No Known Allergies) MEGAN inhibitors Problems Active Problems??(1) Osteoporosis, postmenopausal?? Education Materials Below is the list of Educational Leaflet Providered with your Discharge Instructions. Valuables and Belongings I fully understand and agree that [facility] accepts no responsibility for all my personal property including clothing, toilet articles, radios, jewelry, dentures, hearing aids, rings, money, or any other property that is in my possession or is brought to me after admission. I understand certain valuables may be placed in a hospital safe for a short period of time. I understand that the hospital is not liable for loss or damage due to accident, fire, or other natural occurrence while said property is in the safe. I accept full responsibility for any personal property that I keep with me, and will not hold the hospital responsible in case of loss or disappearance. I acknowledge that i have been encouraged to send valuables and belongings home. ?? Review of Valuable and Belonging List: With patient Date for Pt to Sign Valuables/Belongings: 12/13/24 17:18:00 ?? Other Discharge Information ? Case Management Discharge Plan?? Discharge Plan?? Discharge Agency Information?? Discharge Level of Care at Discharge: Short-term Acute Inpatient Agency Nsh Teacher #1: intake Discharge Transportation Arranged: family Service Categories #1: Occupational Therapy, Physical Therapy, Group Home Discharge Arranged Transport Date/Time: 12/17/24 15:00:00 Service Comments #1: You are being discharged for futher therapy and care. Please arrive at the emergency department at [facility] for admission to [facility]: [facility] ??[phone] Name of Person Notified of Transfer: Paticia ??Brice ?? Pulmonary Rehab Status?? Pulmonary Rehab Discharge Status?? Respiratory Rate: 18 br/min ? Common Emergency Awareness Tips IS IT A STROKE? Act FAST and Check for these signs: FACE Does the face look uneven? ARM Does one arm drift down? SPEECH Does their speech sound strange? TIME Call at any sign of stroke ?? Heart Attack Signs Chest discomfort: Most heart attacks involve discomfort in the center of the chest and lasts more than a few minutes, or goes away and comes back. It can feel like uncomfortable pressure, squeezing, fullness or pain. Discomfort in upper body: Symptoms can include pain or discomfort in one or both arms, back, neck, jaw or stomach. Shortness of breath: With or without discomfort. Other signs: Breaking out in a cold sweat, nausea, or lightheaded. Remember, MINUTES DO MATTER. If you experience any of these heart attack warning signs, call to get immediate medical attention! ?? Smoking can increase your chances of developing chronic health problems and can cause harmful effects to other family members in your house. If you smoke, you are strongly encouraged to quit. Please call [facility] [employer] Link at [phone] or [phone]) or log in to [email or web address] for referrals to smoking cessation programs. ?? 552 Suicide & Crisis Lifeline is available 24/06 if you or someone you know needs to find a reason to keep living. By calling 878 you'll be connected to a skilled, trained counselor at a crisis center in your area. INPATIENT DISCHARGE INSTRUCTIONS SIGNATURE PAGE BRICEROBBIE SANCHEZ Location:[facility] Registration Date and Time:12/13/2024 16:58 EST Primary Care Physician: Jude Nunez MD, Attending Physician: Jason Davis DO, I ROBBIE MCDONOUGH, have received the above patient education materials/instructions and have verbalized understanding. If ambulance or transport services are being used I further acknowledge being given a choice of service. ?? If you need to contact me, please call me at this number: . Patient/Process Mechanic Name: Patient/Process Mechanic Signature: Relationship to Patient: Witness Name/Signature: Date: * Event Display: Provider Clarification Note Please click on pdf link to open report Consult note * Dot Gresham: PERFORM Event Display: Consultation Note Authored Date: Patient: ??ROBBIE MCDONOUGH ? Age:??74 Years?Sex:??Female?:??1950?? Chief Complaint/Reason for Consult Left hip pain History of Present Illness Robbie is a 74-year-old female??who presents to??[facility] as a transfer from outside hospital??with known left subcapital femoral neck fracture.?Patient states she was at the grocery store??and was trying to step around??another customer when she??lost her footing falling onto the left hip. ??She denies head strike, denies LOC. ??She was unable to get up on her own.?? She was brought to the emergency department outside hospital where radiographs revealed??a left subcapital femoral neck fracture.?? The patient??was transferred to [facility] for higher level care as there was no orthopedic??surgeon available at outside facility.?? She denies any numbness or tingling. ??She is complaining about left hip pain??but otherwise is doing well.?? Review of Systems Denies fevers, chills or sweats. ??Denies chest pain. ??Denies other injuries or painful joints. ??All others as per HPI Physical Exam Vitals & Measurements T:??98.0?F?? HR:??79??(Peripheral)?? RR:??18?? BP:??133/69?? SpO2:??97%?? HT:??162??cm?? WT:??54??kg?? BMI:??20.58?? Physical exam: Patient is well-developed and in no acute distress. ??Alert and cooperative with examination. ??Mood and affect appropriate. ??Examined on a stretcher in the emergency department. ?? HEENT: Atraumatic, normocephalic Cardiac: Per medical team Pulmonary: Per medical team.?? Abdomen: Soft, nontender, nondistended. ?? Right upper extremity: Full, supple, nonpainful range of motion of shoulder, elbow, wrist and digits. ??No tenderness to palpation. ??Grossly neurovascularly intact radial, median, ulnar nerve distributions. ?? Left upper extremity: Full, supple, nonpainful range of motion of shoulder, elbow, wrist and digits. ??No tenderness to palpation. Grossly neurovascularly intact radial, median, ulnar nerve distributions. ?? Right lower extremity: Full, supple, non-painful range of motion of the hip, knee, foot and ankle. ??No tenderness to palpation. ??Calf supple and nontender. Active dorsiflexion and plantar flexion strength. ??Grossly neurovascularly intact. ?? Left lower extremity:??Examination reveals external rotation at the hip. ??Shortening is noted as compared to contralateral lower extremity examination. ??Patient is exquisitely tender to palpation about the hip and is unable to tolerate range of motion of same. ??Moderate edema noted about the hip. ??No discomfort about the femur distally. ??No discomfort about the knee, foot or ankle. ??Range of motion of the knee is nonpainful but decreased due aggravation of proximal hip pain. ??Patient has active dorsiflexion and plantar flexion strength. ??Palpable DP and PT pulses. ??Grossly intact sensation to light touch. ??Compartments are soft. ??Calf supple and nontender. Assessment/Plan Assessment:??Plan: Patient is admitted to the medical service.??Orthopedics will follow.??Preoperative medical clearance is requested.??Patient will be made n.p.o. after midnight tonight for possiblesurgery tomorrow.??Recommend strict nonweightbearing status, elevation, pain control and DVT prophylaxis. Patient is added to the orthopedic trauma surgery OR add on list with plan for surgical fixation once medically cleared and when OR schedule allows.??This was discussed with the patient who voiced understanding.??Questions are asked and answered.? Closed subcapital fracture of left femur (S72.012A):??Operative Problem List/Past Medical History Ongoing Osteoporosis, postmenopausal Hypertension Procedure/Surgical History Tonsillectomy left wrist closed reduction under anesthesia Home Medications Alendronate??70 mg??weekly Amlodipine??5 mg daily Hydrochlorothiazide 25 mg daily Multivitamins Allergies MEGAN inhibitors Social History Patient denies tobacco and drug use.?? She endorses occasional alcohol use.?? She lives at home with her in a [place] level [place].?? She denies walking aid use. 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 She does walk 3 to 5 miles daily. Family History Denies history of adverse reaction to anesthesia, bleeding dyscrasias, DVT. Radiology AP pelvis2 view radiographs of the left hip reviewed by myself demonstrating displaced, varus angulated subcapital femoral neck fracture with superior migration.?? No other bony abnormalities noted. Lab Results Labs Last 24 Hours No qualifying data available. Patient Care team information Care Team Personnel Name: Robbie Butler Position: [facility] Onco RN Member Role: Primary Care Nurse Name: Valente Chu RN [facility]: [facility] [facility] RN Member Role: Primary Care Nurse Name: Amanda Seymour RN Position: [facility] RN Member Role: Primary Care Nurse Name: Perla Lowe MA Position: [facility] Non-Invasive Cardiology Member Role: Primary Care Nurse Name: Pamela Neves RN Position: [facility] RN Member Role: Primary Care Nurse Name: Jude Nunez MD Position: Reference Physician Member Role: PCP Address: [address] [place] [id number] Telecom: Care Team Related Persons Name: ROSA RADFORD Name: LEIGHTON MCDONOUGH Insurance Providers Guarantor name: ROBBIE MCDONOUGH Health Plan Information #: 2 Payer: MEDICARE A INPT 25 Member Number: [id number] Policy Number: NA Group Number: NA Health Plan Information #: 1 Payer: CIGNA PPO MVP Member Number: [id number] Policy Number: NA Group Number: [id number] Health Plan Information #: 3 Payer: MCARE A IP REHAB 25 Member Number: NA Policy Number: NA Group Number: NA
--- OUTSIDE RECORDS SUMMARY | 2024-12-28 14:59 | XMS_ITS | Patient Health Record ---
Author Organization [facility] Address [address] [place] [address] Care Team Providers Care Licensed Customs Broker Name Role Phone Jude Nunez MD Primary Care Provider Etienne Gan Jr Unavailable [phone] ALLERGIES Allergen (clinical drug ingredient) Drug/Non Drug Allergy documented on EMR Reaction Allergy Type Onset Date Status angiotensin-conver ting enzyme inhibitor (FN) cherrie inhibitors (uncoded) elevated bloodpressure Allergy Active REASON FOR REFERRAL No Information MEDICATIONS Medication SIG (Take, Route, Frequency, Duration) Notes Start Date End Date Status Alendronate Sodium 70 MG TAKE 1 TABLET B Y MOUTH ONCE A WEEK Oral for 84 Active Zinc 100 MG 1 tablet Orally Once a day for 30 day(s) Active Vitamin C 500 MG as directed Orally Active MiraLax (colon prep) 17 GM/SCOOP mixed with Gatorade or Crystal Light Orally begin at 5:00 p.m. the day before the procedure for 1 day 02/01/2022 Active Multivitamin Active hydroCHLOROthiazide 25 MG Orally Active Vitamin D Active IMMUNIZATIONS Vaccine Route Administration Date Status Comme nts Influenza Unknown 08/02/2021 Administered SOCIAL HISTORY Sex Assigned At : Social History Observation Description Sex Assigned At Unknown PROBLEMS Problem Type ICD Code Onset Dates Problem Status W/U Status Risk SNOMED Code Notes Problem Colon cancer screening (Z12.11) Active confirmed 565789495 Problem Long-term current use of high risk medication other than anticoagulant (Z79.899) Active confirmed 923065213 Problem Encounter for other preprocedural examination (Z01.818) Active confirmed 18665671 Problem soakers supervisor current use of diuretic (Z79.899) Active confirmed [id number] Problem History of colon polyps (Z86.010) Active confirmed History of polyp of colon (209326646) PLAN OF TREATMENT Future Test Test Name Order Date COLONOSCOPY 08/30/2016 COLONOSCOPY 02/01/2022 Insurance Providers Payer Name Payer Address Payer Phone Subscriber Number Group Number Insured Name Patient Relationship to Insured Coverage Start Date Coverage End Date [employer] PPO [address] [place] [phone] [id number] ROBBIE MCDONOUGH Self - patient is the insured MEDICAL (GENERAL) HISTORY Medical History History ICD Code Colon polyps, last colonosco py 11/16, incomplete, negative for polyps, followup CT also negative. hypertension Osteoporosis MGUS Surgical History Surgery Date(Month/Year) tonsillectomy
== END 2024-12-28 11:24 | disposition home or self-care (01) ==
PROVIDERS: PCP Internal Medicine
DX: S72.002A Fracture of unspecified part of neck of left femur, initial encounter for closed fracture (principal); I10 Essential (primary) hypertension; M81.0 Age-related osteoporosis without current pathological fracture

== ENCOUNTER → 2024-12-28 10:20 | Outpatient (BNVA) | payer OTHER, SELFPAY | PROVIDERS: PCP Internal Medicine | DX: S72.002D Fracture of unspecified part of neck of left femur, subsequent encounter for closed fracture with routine healing (principal); I10 Essential (primary) hypertension; M81.0 Age-related osteoporosis without current pathological fracture; Z96.641 Presence of right artificial hip joint | CPT/HCPCS: 96127 ==

== ENCOUNTER 2025-04-23 08:46 | Outpatient (AMB) | payer OTHER, SELFPAY ==
--- NOTE | 2025-04-23 08:47 | A.OFFPC_ITS ---
Vital Signs 04/23/25 08:48 Height 5 ft 4 in Weight 113 lb BMI 19.4 BP 146/68 H Blood Pressure Location Lt brachial Position Sitting Respiration 18 Pulse 51 Pulse Source Pulse Oximeter Temp 97.1 F Temp Source Temporal Artery Scan Pulse Oximetry (%) 98 Oxygen Delivery Method Room Air Intake Visit Reasons: annual exam Rental Agent Required: No Accompanied by: Self / Same As Patient Allergies MEGAN Inhibitors [MEGAN INHIBITORS] Allergy (Intermediate, Verified 04/23/25 08:48) ELEVATED BP Medication List - Last Reconciled 04/23/25 by Jude Nunez MD amlodipine 5 mg PO DAILY ascorbic acid (vitamin C) 500 mg PO DAILY cholecalciferol (vitamin D3) 10 mcg PO DAILY herbal complex no.174 mg PO hydrochlorothiazide 25 mg PO DAILY multivitamin 1 tab PO DAILY Tobacco use date assessed: 04/23/25 Fall risk assessment: 1 Fall in past year Last assessed Fall Risk: 04/23/25 Dental Screening Dental Screen Date: 04/23/25 Did you have a dental visit in the last 12 months?: Yes Did you have a dental problem in the last 6 months where you did not have access to dental care?: No Was dental information given to patient?: Patient has dentist [facility] Medical History (Updated 04/23/25 @ 09:06 by Jude Nunez MD) COVID-19 vaccine series completed Tubular adenoma of colon Osteoporosis MGUS (monoclonal gammopathy of unknown significance) Hypertension Surgical History History of right hip hemiarthroplasty H/O colonoscopy History of basal cell carcinoma (BCC) excision History of tonsillectomy and adenoidectomy Family History Father CHF (congestive heart failure) Mother Lung cancer Social History (Updated 04/23/25 @ 09:15 by Jude Nunez MD) Housing: House Alcohol intake: current Alcohol intake frequency: holidays/special occasions only Comment: 1 day glass of wine, now once a week 04/2025 Patient Tobacco Use Status: Never used Tobacco e-Cigarette/Vaping Use: Never Used Second Hand Smoke Exposure: No service: No Current occupational status: retired Cognitive needs: No Hearing needs: No Vision needs: No Questionnaire PHQ-9 Over the last 2 weeks, how often have you been bothered by any of the following problems? 1. Little interest or pleasure in doing things: not at all 2. Feeling down, depressed, or hopeless: not at all 3. Trouble falling or staying asleep, or sleeping too much: not at all 4. Feeling tired or having little energy: not at all 5. Poor appetite or overeating: not at all 6. Feeling bad about yourself - or that you are a failure or have let yourself or your family down: not at all 7. Trouble concentrating on things, such as reading the newspaper or watching television: not at all 8. Moving or speaking so slowly that other people could have noticed. Or the opposite - being so fidgety or restless that you have been moving around a lot more than usual: not at all 9. Thoughts that you would be better off or of hurting yourself in some way: not at all Total score: 0 Depression Screening Interpretation: Negative Depression Screening Done: Yes 02763 - PHQ-9 Billing: Yes Source: Developed by Drs. Segundo Yuen, Abbey Marinelli, Quan Garcia and colleagues, with an educational imani from [employer]. Thrive Questionnaire Date Thrive assessed: 04/23/25 I am a: Patient What is your living situation today?: I have a steady place to live Within the past 12 months, did the food you bought not last and you didn't have the money to get more?: Never true Within the past 12 months, did you worry whether your food would run out before you got money to buy more?: Never true Do you have trouble paying for medicines?: No Do you have trouble getting transportation to medical appointments?: No Do you have trouble paying your heating and electricity bill?: No Do you have trouble taking care of your child, family member or friend?: No Do you have trouble with day-to-day activities such as bathing, preparing meals, shopping, managing finances, etc.?: No Are you currently unemployed and looking for a job?: No Are you interested in more education?: No Please select the resources that you would like help with: None Currently or been in a relationship where the following occur: No concerns reported THRIVE Score: 0 AUDIT C Alcohol Use Questionnaire (AUDIT-C) 1. How often do you have a drink containing alcohol?: Monthly or less Total Score: 1 Score Reviewed/Action Taken: No WANDER-7 AMB Questionnaire WANDER-7 Date WANDER - 7 assessed: 04/23/25 Feeling nervous, anxious, or on edge: 0 = Not at all Not being able to stop or control worryin = Not at all Worrying too much about different things: 0 = Not at all Trouble relaxin = Not at all Being so restless that it is hard to sit still: 0 = Not at all Becoming easily annoyed or irritable: 0 = Not at all Feeling afraid as if something awful might happen: 0 = Not at all Total WANDER-7 score (0-4 normal; 5-9 mild; 10-14 moderate; 15-21 severe): 0 Source: Developed by Drs. Segundo Yuen, Abbey Marinelli, Quan Garcia and colleagues, with an educational imani from [employer]. WANDER-7 Assessment Billing WANDER-7 Assessment Tool: WANDER-7 Assessment 02635 Review of Systems Const Denies poor appetite and Denies weakness Eyes Denies no additional complaints ENT Reports Normal hearing present, Denies dizziness, Denies nasal congestion, Denies tinnitus and Denies sore throat Card Denies chest pain, Denies syncope, Denies rapid heart rate and Denies dyspnea Resp Denies cough and Denies dyspnea GI Denies change in stool character, Reports constipation, Denies diarrhea, Denies nausea and Denies vomiting Denies urinary frequency, Denies difficulty voiding and Denies dysuria Neuro Reports Normal hearing present, Denies confusion, Denies dizziness, Denies syncope and Denies weakness Psych Denies confusion Physical exam (Primary Care) Vital Signs: Last Vital Signs Temp 97.1 F 04/23/25 08:48 Pulse 51 04/23/25 08:48 Resp 18 04/23/25 08:48 BP 146/68 H 04/23/25 08:48 Pulse Ox 98 04/23/25 08:48 Oxygen Delivery Method Room Air 04/23/25 08:48 BMI result Body Mass Index 19.4 Tobacco/Smoking Status: Tobacco use Status Tobacco use date assessed 04/23/25 04/23/25 08:55 Patient Tobacco Use Status Never used Tobacco 04/23/25 08:55 e-Cigarette/Vaping Use Never Used 04/23/25 08:55 PHQ-9: PHQ-9 Score PHQ-9: Total score 0 04/23/25 08:55 Depression Screening Interpretation: Negative Thrive Assessment: Date of Thrive Assessment Date Thrive assessed 04/23/25 04/23/25 08:55 Currently or been in a relationship where the following occur: No concerns reported Const General: No confusion Orientation/consciousness: No confusion HENMT Head: Yes normocephalic Ears: external ears normal and TM's normal bilaterally Face and sinus: Yes normal facial exam Mouth: moist mucous membranes Throat: Yes tonsils normal Eyes Conjunctivae: conjunctivae normal Pupils: Equal, round and reactive pupils present and Pupil accommodation reflex normal Direct Ophthalmoscopy: normal light reflex Neck Neck: No lymphadenopathy Thyroid: Thyroid normal Chest Chest palpation & inspection: normal inspection of the chest Resp Effort & Inspection: normal respiratory effort and no audible wheezes Auscultation: clear to auscultation bilaterally, no crackles, no wheezes and lung sounds not diminished Cardio Rate: regular rate Rhythm: regular rhythm Peripheral pulses: radial pulses present and dorsalis pedis present GI Other: sees Supervisor Pressing Department for rectal Palpation (GI): no masses Auscultation: normal bowel sounds and normoactive bowel sounds Rectal Exam - Female: deferred Skin General skin exam: no rashes or lesions noted Rashes: no rashes Neuro General: No confusion Cranial nerves: Yes Equal, round and reactive pupils present and Yes Normal hearing present Cognition (Neuro): normal cognition Gait exam (Neuro): Normal gait present Motor exam (neuro): 5/5 motor strength present throughout Deep tendon reflexes (DTR's): Right brachioradialis reflex intensity grade: 2+, Left brachioradialis reflex intensity grade: 2+, Right patellar reflex intensity grade: 2+ and Left patellar reflex intensity grade: 2+ Extrem General: No edema Coding Level of Care Code Est Pt Prev Care >65y(27176) Diagnoses Annual physical exam Z00.00 Essential hypertension I10 Hypertension type: essential hypertension MGUS (monoclonal gammopathy of unknown significance) D47.2 Age-related osteoporosis without current pathological fracture M81.0 Osteoporosis type: age-related Presence of current pathological fracture: without current pathological fracture Breast cancer screening by mammogram Z12.31 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 (2) Hypertension: Code(s): I10 - Essential (primary) hypertension Category: Medical Qualifiers: Hypertension type: essential hypertension Qualified Code(s): I10 - Essential (primary) hypertension Plan: Continue with blood pressure medication. Decrease salt intake and exercise on amlodipine 5 mg once a day hydrochlorothiazide 25 mg once a day (3) MGUS (monoclonal gammopathy of unknown significance): Comment: Doctor Rodríguez November 2016, May 2017, June 2020 Code(s): D47.2 - Monoclonal gammopathy Category: Medical Plan: Patient continues to follow-up with Hematology-Oncology aware to monitor for lymphadenopathy fever chills anemia. (4) Osteoporosis: Comment: November 2022 Code(s): M81.0 - Age-related osteoporosis without current pathological fracture Category: Medical Qualifiers: Osteoporosis type: age-related Presence of current pathological fracture: without current pathological fracture Qualified Code(s): M81.0 - Age- related osteoporosis without current pathological fracture Plan: Discussed about repeating bone density. 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 Mckeon Code(s): C79.2 - Secondary malignant neoplasm of skin Category: Medical Plan: Continue to follow-up with dermatology for skin check (7) Closed left hip fracture: Comment: Status post ORIF Code(s): S72.002A - Fracture of unspecified part of neck of left femur, initial encounter for closed fracture Category: Medical Plan: Patient continues to follow-up with orthopedics Plan History of Present Illness The patient is a 74-year-old female presenting for an annual physical examination. Her pertinent medical history includes MGUS, essential hypertension, osteoporosis, colon tubular adenoma history with the last colonosc opy in April 2022, and a diagnosis of small cell skin cancer. She has a notable history of left hip fracture with post-operative status left hip hemiarthroplasty, currently three months since the procedure. The last visit occurred in December 2024. The patient continues follow-up care with specialists in orthopedics, dermatology, and hematology/oncology. She remains at risk for lymphoplasmacytic lymphoma, considering her symptoms of fatigue, weight loss, night sweats, fever, and anemia. Recent tests included a mammogram, bone density, and blood work, with most parameters normal but low-normal potassium in August 2024. Her treatment regimen includes amlodipine and hydrochlorothiazide for hypertension, with instructions for vigilant monitoring of lymphadenopathy and other symptoms. The focus on health maintenance encompasses repeating bone density checks, discussion of calcium and vitamin D, and staying active to prevent falls. Despite challenges in awareness of her fall risk, she endeavors to maintain safety and mobility. Health Maintenance - Mammogram: Last performed in mid-2021. - Colonoscopy: Last performed in April 2022. - Bone Density Scan: Discussion on repeating the test; last conducted November 2022. - Blood Work: Conducted in August 2024; normal, except low-normal potassium. - Discussions on the importance of calcium and vitamin D supplementation. - Emphasized activity and exercise to maintain strength and prevent falls. Social History - Fall Prevention: Patient actively works to avoid falls due to prior incidents and awareness of increased risk related to age. - Mobility: Engaged in exercises and instructed in safety measures to prevent future falls. - Dietary Habits: Discussed the importance of hydration and healthy eating. Review of Systems - Hematologic: Reports fatigue, weight loss, night sweats, fever, anemia. - Musculoskeletal: Reports issues related to left hip fracture and postoperative status. - No other systems discussed. Physical Exam General: Cooperative, healthy appearing, comfortable, no acute distress and well developed Orientation: Patient oriented x3 Limitations: No limitations Head: Normal to inspection Ears: Hearing grossly normal bilaterally Nose: Normal external nose present Face and sinus: Normal facial exam Eyes: Appearance normal, both eyes and all related structures Neck: Normal visual inspection and Yes full ROM Respiratory: Normal respiratory effort and able to speak in complete sentences. Clear to auscultation bilaterally Cardiovascular: Regular rate and rhythm. Normal S1 and S2 GI: Normal to inspection. Soft to palpation and nontender Skin: No rashes or lesions noted Neuro: Patient oriented x3 Extremities: Normal to inspection Results - Labs: Blood work from August 2024 shows normal counts, normal electrolytes, low-normal potassium. Plan The patient will continue her current antihypertensive regimen with amlodipine and hydrochlorothiazide. Monitoring osteoporosis with routine bone density scans and considering calcium and vitamin D supplements will help manage her condition. Continued hematology/oncology follow-up is essential, particularly to monitor for changes related to MGUS and her lymphoma risk, with the possibility of a bone marrow biopsy in case of symptom progression. She remains engaged in dermatological care for ongoing skin cancer surveillance. The focus on preventative health measures, such as fall safety and regular screenings, stays prioritized to maintain her overall health and wellbeing. Annual mammography will also be scheduled accordingly. Patient was informed and verbally consented to the use of an ambient scribe for clinic note documentation during this visit. Discussion Notes During our discussion, we reviewed the patient's current health status and m anagement of her chronic conditions. We acknowledged the importance of ongoing monitoring and follow-ups in managing her history of osteoporosis, hypertension, and MGUS. I explained the significance of maintaining bone density through appropriate supplementation and lifestyle changes and the comprehensive monitoring necessary to address her risk of developing lymphoplasmacytic lymphoma. Emphasis was placed on the potential need for further diagnostics, such as a bone marrow biopsy, should symptoms evolve indicative of lymphoma progression. The benefits and potential risks associated with her current treatments were addressed, with consent obtained regarding her management plan moving forward. I reiterated the importance of safety measures against falls due to her past history of hip fracture. Patient Instructions - Continue taking amlodipine 5 mg daily and hydrochlorothiazide 25 mg daily as directed. - Schedule and attend regular follow-ups with hematology, orthopedics, and dermatology. - Stay vigilant about symptoms such as night sweats, weight loss, fever, lymphadenopathy, and report any changes. - Prioritize calcium and vitamin D intake, and repeat bone density scans as advised. - Ensure regular screenings such as mammography and colonoscopy. - Emphasize fall prevention strategies and maintain active exercise routines. - Return to our clinic for any new symptoms or concerns. Orders: Orders Thyroid Stimulating Hormone 4 Months I10 - Essential (primary) hypertension Lipid Panel 4 Months E78.00 - Pure hypercholesterolemia, unspecified, I10 - Essential (primary) hypertension Vitamin B12 and Folate 4 Months I10 - Essential (primary) hypertension UA CC w/rflx Micro + Cult 4 Months I10 - Essential (primary) hypertension, R30.0 - Dysuria Complete Blood Count Auto Diff 4 Months I10 - Essential (primary) hypertension Comprehensive Met. Panel 4 Months I10 - Essential (primary) hypertension Free T4 (Free Thyroxine) 4 Months I10 - Essential (primary) hypertension Vitamin D 25-OH Total 4 Months I10 - Essential (primary) hypertension
[2025-04-23 08:48] VITALS: BP 146/68; PULSE 51; RESP 18; TEMP 36.2; O2SAT 98; BMI 19.4
--- OUTSIDE RECORDS SUMMARY | 2025-04-23 09:04 | XMS_ITS | Patient Health Record ---
Author Organization [facility] Address [address] [place] [address] Care Team Providers Care Control Area Operator Name Role Phone Jude Nunez MD Primary Care Provider Etienne Gan Jr Unavailable Allergies Allergen (clinical drug ingredient) Drug/Non Drug Allergy documented on EMR Reaction Allergy Type Onset Date Status angiotensin-conver ting enzyme inhibitor (FN) cherrie inhibitors (uncoded) elevated bloodpressure Allergy Active Reason For Referral No Information Medications Medication SIG (Take, Route, Frequency, Duration) Notes [...] 25 MG Orally Active Vitamin D Active Immunizations Vaccine Route Administration Date Status Comme nts Influenza Unknown 08/02/2021 Administered Problems Problem Type SNOMED Code ICD Code Onset Dates Problem Status W/U Status Risk Notes Problem 729998527 Colon cancer screening (Z12.11) Active confirmed Problem 17306860 Encounter for other preprocedural examination (Z01.818) Active confirmed Problem History of colon polyps (Z86.010) Active confirmed Problem 717765278 Long-term current use of high risk medication other than anticoagulant (Z79.899) Active confirmed Problem [id number] skilled nursing current use of diuretic (Z79.899) Active confirmed Plan Of Treatment Future Test Test Name Order Date COLONOSCOPY 08/30/2016 COLONOSCOPY 02/01/2022 Insurance Providers Payer Name Payer Address Payer Phone Subscriber Number Group Number Insured Name Patient Relationship to Insured Coverage Start Date Coverage End Date [employer] PPO [address] [place] [phone] [id number] ROBBIE MCDONOUGH Self - patient is the insured Medical (General) History Medical History History ICD Code Colon polyps, last colonosco py 11/16, incomplete, negative for polyps, followup CT also negative. hypertension Osteoporosis MGUS Surgical History Surgery Date(Month/Year) tonsillectomy
== END 2025-04-23 09:28 | disposition home or self-care (01) ==
LOC: HO.HMCH 08:47
PROVIDERS: PCP Internal Medicine; Visit Provider Internal Medicine
DX: Z00.00 Encounter for general adult medical examination without abnormal findings (principal); C79.2 Secondary malignant neoplasm of skin; S72.002A Fracture of unspecified part of neck of left femur, initial encounter for closed fracture; I10 Essential (primary) hypertension; D47.2 Monoclonal gammopathy; M81.0 Age-related osteoporosis without current pathological fracture; Z12.31 Encounter for screening mammogram for malignant neoplasm of breast

== ENCOUNTER → 2025-04-23 08:46 | Outpatient (BNVA) | payer OTHER, SELFPAY | PROVIDERS: PCP Internal Medicine; Visit Provider Internal Medicine | DX: Z00.00 Encounter for general adult medical examination without abnormal findings (principal); I10 Essential (primary) hypertension; D47.2 Monoclonal gammopathy; M81.0 Age-related osteoporosis without current pathological fracture; C44.799 Other specified malignant neoplasm of skin of left lower limb, including hip; C44.391 Other specified malignant neoplasm of skin of nose; S72.002D Fracture of unspecified part of neck of left femur, subsequent encounter for closed fracture with routine healing; Z13.30 Encounter for screening examination for mental health and behavioral disorders, unspecified | CPT/HCPCS: 96127 ==